=== PATIENT | male | born 1975 | race Caucasian/White ===

== ENCOUNTER 2020-03-25 12:54 | Emergency (ER) | payer OTHER ==
[2020-03-25 13:02] VITALS: BP 182/107; PULSE 99; RESP 18; TEMP 98
--- NOTE | 2020-03-25 13:04 | ED ---
Back Pain HPI - General Chief Complaint: Back Pain/Injury Stated Complaint: fall,neck,knee,and back pain Time Seen by Provider: 03/25/20 13:04 Source: patient Limitations: no limitations - History of Present Illness Initial Comments: Patient is a 44-year-old male presenting to the emergency department with a chief complaint of a fall. Patient states he was walking from a carpeted floor to a wet tile floor when he slipped and fell on his back. Patient denies any head injury but does report neck stiffness and spasm in. Patient states she does have history of previous neck surgery and has hardware in place. He denies any numbness or tingling. He also reports bilateral, paraspinal lumbar tenderness which is where most of the impact took place after the fall. He denies any saddle anesthesia, urinary retention with overflow incontinence or bowel incontinence. He also reports some right knee pain especially with emulating, flexion not extension. He denies taking medication to alleviate the symptoms. States this occurred one hour prior to arrival. - Related Data Home Medications Medication Instructions Recorded Confirmed cloNIDine HCL [Catapres] 0.1 - 0.3 mg PO Q4H PRN 08/19/15 03/25/20 Acetaminophen [Tylenol 8 Hour] 650 mg PO Q4H PRN MDD 6 TABS 03/25/20 03/25/20 Albuterol Inhaler [Ventolin Hfa 2 puff INHALATION RT-Q4H PRN 03/25/20 03/25/20 Inhaler] Calcium 1000mg/Magnesium 500mg 1 tab PO TID PRN 03/25/20 03/25/20 Chlorpheniramine Maleate 4 mg PO Q4HR PRN MDD 4 DOSES 03/25/20 03/25/20 [Chlor-Trimeton] Hyoscyamine Sulfate [Levsin-Sl] 0.125 mg SUBLINGUAL QID PRN 03/25/20 03/25/20 Ibuprofen [Motrin] 600 mg PO Q6HR PRN 03/25/20 03/25/20 Loperamide [Imodium] 4 mg PO BID PRN 03/25/20 03/25/20 Mirtazapine [Remeron] 30 mg PO HS@2200 03/25/20 03/25/20 Multivitamins, Thera [Multivitamin 1 tab PO DAILY@1200 03/25/20 03/25/20 (formulary)] Mylanta 30 ml PO Q4H PRN 03/25/20 03/25/20 Ondansetron HCl [Zofran] 8 mg PO Q6H PRN 03/25/20 03/25/20 Thiamine [Vitamin B-1] 100 mg PO DAILY@1200 03/25/20 03/25/20 Tigan 200mg 200 mg IM Q6H PRN 03/25/20 03/25/20 Trimethobenzamide HCl [Tigan] 300 mg PO Q6H PRN 03/25/20 03/25/20 Zofran 2mg/Ml 4 mg IM Q6H PRN 03/25/20 03/25/20 buprenorphine HCL [Subutex] 1 dose SUBLINGUAL DIRECTED 03/25/20 03/25/20 busPIRone HCl [Buspar] 10 mg PO DIRECTED 03/25/20 03/25/20 risperiDONE 4 mg PO HS@2200 03/25/20 03/25/20 Previous Rx's Medication Instructions Recorded Cyclobenzaprine [Flexeril] 10 mg PO TID PRN #15 tab 03/25/20 Ibuprofen [Motrin] 800 mg PO Q6HR #30 tab 03/25/20 Allergies Allergy/AdvReac Type Severity Reaction Status Date / Time No Known Allergies Allergy Verified 03/25/20 13:34 Review of Systems ROS Statement: Those systems with pertinent positive or pertinent negative responses have been documented in the HPI. ROS Other: All systems not noted in ROS Statement are negative. Past Medical History Past Medical History: CVA/TIA, Seizure Disorder Additional Past Medical History / Comment(s): chronic back pain History of Any Multi-Drug Resistant Organisms: None Reported Additional Past Surgical History / Comment(s): cervical spine fusion rods and plates Past Psychological History: ADD/ADHD, Anxiety, Bipolar, Depression, PTSD Smoking Status: Current every day smoker Past Alcohol Use History: None Reported, Abuse, Daily, Heavy Past Drug Use History: Marijuana General Exam Limitations: no limitations General appearance: alert, in no apparent distress Head exam: Present: atraumatic, normocephalic, normal inspection Eye exam: Present: normal appearance, PERRL, EOMI Pupils: Present: normal accommodation ENT exam: Present: normal exam, normal oropharynx, mucous membranes moist, TM's normal bilaterally, normal external ear exam Neck exam: Present: normal inspection, tenderness (Mild, mid vertebral, upper cervical tenderness. Also some tenderness to palpation in bilateral trapezii.), full ROM Respiratory exam: Present: normal lung sounds bilaterally. Absent: respiratory distress, wheezes, rales Cardiovascular Exam: Present: regular rate, normal rhythm, normal heart sounds GI/Abdominal exam: Present: soft. Absent: distended, tenderness, guarding, rebound Extremities exam: Present: normal inspection, tenderness (Tetanus along the infrapatellar region of the right knee.), normal capillary refill, other (+2 ulnar and radial pulses bilateral. +2 dorsalis pedis and posterior tibialis bilateral.). Absent: full ROM (Limited range of motion the right knee due to pain.), pedal edema, joint swelling, calf tenderness Back exam: Present: normal inspection, full ROM, tenderness, paraspinal tenderness (Bilateral paraspinal tenderness in the lumbosacral region.). Absent: CVA tenderness (R), CVA tenderness (L) Neurological exam: Present: alert, oriented X3 Psychiatric exam: Present: normal affect, normal mood Skin exam: Present: warm, dry, intact, normal color Course Vital Signs 03/25/20 12:58 Temperature 98 F Pulse Rate 99 Respiratory 18 Rate Blood Pressure 182/107 O2 Sat by Pulse 97 Oximetry Medical Decision Making - Medical Decision Making Patient is a 44-year-old male presenting to emergency Department with a chief complaint of a fall. On physical examination, patient does have tenderness over the right infrapatellar region. There is also some mid cervical tenderness of the neck and the trapezii. He also has paraspinal tenderness in the lumbosacral region. X-rays of the lumbar region and knee are negative for acute fracture or dislocations. Patient was offered CT of the brain and cervical spine, he declined. He knows there could be a potential for intracranial hemorrhage, dislocation, fracture. Neurological examination intact. Patient was given analgesia in the ED. Patient requested ibuprofen and Flexeril. Patient is a [facility] patient. Strict return parameters were thoroughly discussed the patient is an attending ago. Case discussed with physician. Disposition Clinical Impression: Fall, Knee pain, Low back pain Disposition: HOME SELF-CARE Condition: Stable Instructions (If sedation given, give patient instructions): Acute Low Back Pain (ED) Additional Instructions: Alternate between Tylenol and Motrin for pain. Return to emergency department if symptoms worsen. Prescriptions: Cyclobenzaprine [Flexeril] 10 mg PO TID PRN #15 tab PRN Reason: Muscle Spasm Ibuprofen [Motrin] 800 mg PO Q6HR #30 tab Is patient prescribed a controlled substance at d/c from ED?: No Referrals: Amandeep Avalos MD [Primary Care Provider] - 1-2 days Time of Disposition: 14:19
[2020-03-25] MEDS ORDERED: KETOROLAC 15 MG/ML 1 ML VIAL IM STA (13:16)
--- NOTE | 2020-03-25 13:43 | XR ---
EXAMINATION TYPE: XR knee complete RT DATE OF EXAM: 03/25/2020 CLINICAL HISTORY: pain TECHNIQUE: Three views of the right knee are obtained. COMPARISON: None. FINDINGS: There is no acute fracture/dislocation. The tri-compartment joint spaces appear within no rmal limits. The overlying soft tissue appears unremarkable. IMPRESSION: There is no acute fracture or dislocation.ICD 10 NO FRACTURE, INITIAL EVALUATION
--- NOTE | 2020-03-25 13:51 | XR ---
EXAMINATION TYPE: XR lumbar spine 2 or 3V DATE OF EXAM: 03/25/2020 CLINICAL HISTORY: pain TECHNIQUE: Three views of the lumbar spine are submitted. COMPARISON: None. FINDINGS: There are 5 lumbar type vertebral bodies identified. The lumbar spine shows satisfactory alignment w ithout evidence of acute fracture or dislocation. Vertebral body heights are within normal limits. Mild scattered degenerative disc space narrowing and spondylosis. The overlying soft tissue appears unremarkable. IMPRESSION: No acute fracture or dislocation is seen in the lumbar spine. ICD 10 NO FRACTURE, INITIAL EVALUATION
== END 2020-03-25 14:40 | disposition home or self-care (01) ==
LOC: EC 12:54
DX: M54.5 Low back pain (principal); M25.561 Pain in right knee; M54.2 Cervicalgia; F17.200 Nicotine dependence, unspecified, uncomplicated; F41.9 Anxiety disorder, unspecified; F31.9 Bipolar disorder, unspecified; F43.10 Post-traumatic stress disorder, unspecified; F90.9 Attention-deficit hyperactivity disorder, unspecified type; G40.909 Epilepsy, unspecified, not intractable, without status epilepticus; Z79.899 Other long term (current) drug therapy; Z86.73 Personal history of transient ischemic attack (TIA), and cerebral infarction without residual deficits; Z98.1 Arthrodesis status; W01.0XXA Fall on same level from slipping, tripping and stumbling without subsequent striking against object, initial encounter; Y93.01 Activity, walking, marching and hiking; Y92.009 Unspecified place in unspecified non-institutional (private) residence as the place of occurrence of the external cause
CPT/HCPCS: 72100; 73562; 99283; 96372; J1885

== ENCOUNTER 2020-09-30 11:06 | Emergency (ER) | payer OTHER ==
[2020-09-30 11:17] VITALS: RESP 18
[2020-09-30 12:50] LABS: ALT 14 U/L (4-49); AST 28 U/L (17-59); African American GFR (CKD) >90 (>60 ml/min/1.73 sqM); Albumin 3.8 g/dL (3.5-5.0); Alkaline Phosphatase 55 U/L (38-126); Anion Gap 3 mmol/L; Blood Urea Nitrogen 11 mg/dL (9-20); Calcium 9.2 mg/dL (8.4-10.2); Carbon Dioxide 30 mmol/L (22-30); Chloride 101 mmol/L (98-107); Glucose 108 mg/dL (74-99); Lipase 55 U/L (23-300); Non-African American GFR(CKD) >90 (>60 ml/min/1.73 sqM); Potassium 3.9 mmol/L (3.5-5.1); Sodium 134 mmol/L (137-145); Total Bilirubin 1.1 mg/dL (0.2-1.3)
[2020-09-30 13:00] LABS: Partial Thromboplastin Time 23.9 sec (22.0-30.0); Prothrombin Time 10.7 sec (9.0-12.0)
[2020-09-30 13:20] LABS: Basophils % (A) 0 %; Eosinophils # (A) 0.1 k/uL (0-0.7); Eosinophils % (A) 0 %; HCT 45.9 % (39.0-53.0); HGB 15.3 gm/dL (13.0-17.5); Lymphocytes # (A) 1.9 k/uL (1.0-4.8); Lymphocytes % (A) 17 %; MCH 29.1 pg (25.0-35.0); MCHC 33.3 g/dL (31.0-37.0); MCV 87.5 fL (80.0-100.0); Mean Platelet Volume 7.3; Monocytes # (A) 0.6 k/uL (0-1.0); Monocytes % (A) 6 %; Neutrophils # (A) 8.4 k/uL (1.3-7.7); Neutrophils % (A) 76 %; Platelet Count 196 k/uL (150-450); RBC 5.25 m/uL (4.30-5.90); RDW 14.6 % (11.5-15.5); WBC 11.1 k/uL (3.8-10.6)
--- NOTE | 2020-09-30 13:45 | CT ---
EXAMINATION TYPE: CT abdomen pelvis w con DATE OF EXAM: 09/30/2020 COMPARISON: HISTORY: generalized abdominal pain hernia repair CT DLP: 630.9 mGycm Automated exposure control for dose reduction was used. CONTRAST: CT scan of the abdomen pelvis is performed with IV Contrast, patient injected with 100 mL of Isovue 3 00. FINDINGS- LUNG BASES- No significant abnormality is appreciated. LIVER/GB- No gross abnormality is appreciated. PANCREAS- No gross abnormality is seen. SPLEEN- No gross abnormality is seen. ADRENALS-8 mm left adrenal nodule.. KIDNEYS/BLADDER- no hydronephrosis nephrolithiasis or renal mass. BOWEL-bowel gas pattern nonspecific. LYMPH NODES- No greater than 1cm abdominal or pelvic lymph nodes areappreciated. OSSEOUS STRUCTURES-hypertrophic changes of the spine.. OTHER- there is a large amount of free intraperitoneal air is seen scattered throughout the abdomen and pelvis. There appears to be extensive subcutaneous emphysema with extension through the anterior abdominal wall into the scrotal sac. There is thickening to the right rectus which is slightly asymme tric relative to the left measuring a thickness of 2.1 cm versus 1.5 cm correlate for rectus sheath h ematoma. Small amount of edema or fluid in the anterior subcutaneous tissues within the anterior abdo wei wall bilaterally. Bladder wall thickened. Roach catheter is noted in the bladder. IMPRESSION- 1. Large amount of free intraperitoneal air within the abdomen. Ruptured viscus or perforated bowel i n the differential diagnosis. 2. There is a sizable amount of subcutaneous air anteriorly extends from the anterior abdominal wall into the scrotal sac. An upper thigh region bilaterally 3. Bladder wall is thickened with Roach catheter correlate for urinalysis for bladder infection. 4. Asymmetric thickening to the right rectus sheath suspicious for rectus sheath hematoma correlate c linically. Case discussed with emergency room clinician 09/30/2000 at 1342
--- NOTE | 2020-09-30 14:10 | ED ---
Male Urogenital HPI - General Chief complaint: Urogenital Stated complaint: PostOp problem w Hernia & urination Source: patient Mode of arrival: wheelchair Limitations: no limitations - History of Present Illness Initial comments: Patient is a 45-year-old male with past medical history of daily alcohol use, CVA, seizure disorder who presents to the emergency department with reported surgical site pain and inability to urinate. Patient had surgery at [facility] yesterday by Dr. Duron. He had laparoscopic procedure with repair of a left inguinal hernia. States he was discharged home on Motrin. He has been unable to have a bowel movement or urinate since the procedure. He called his surgeon who told him to go and local ER. He denies any fevers. Inab ility to pass gas. Denies chest pain or shortness of breath. No nausea or vomiting. Reports to increasing pain at the surgical site with some blood tinged drainage. Denies pustular drainage. No other alleviating, precipitating or modifying factors - Related Data Home Medications Medication Instructions Recorded Confirmed Buprenorphine HCl/Naloxone HCl 1 film SL BID 09/30/20 09/30/20 [Suboxone 8 mg-2 mg Sl Film] Allergies Allergy/AdvReac Type Severity Reaction Status Date / Time No Known Allergies Allergy Verified 09/30/20 12:43 Review of Systems ROS Statement: Those systems with pertinent positive or pertinent negative responses have been documented in the HPI. ROS Other: All systems not noted in ROS Statement are negative. Past Medical History Past Medical History: CVA/TIA, Seizure Disorder Additional Past Medical History / Comment(s): chronic back pain History of Any Multi-Drug Resistant Organisms: None Reported Additional Past Surgical History / Comment(s): cervical spine fusion rods and plates Past Psychological History: ADD/ADHD, Anxiety, Bipolar, Depression, PTSD Smoking Status: Current every day smoker Past Alcohol Use History: Abuse, Daily, Heavy Past Drug Use History: Marijuana General Exam Limitations: no limitations General appearance: alert, in no apparent distress Head exam: Present: atraumatic, normocephalic, normal inspection Eye exam: Present: normal appearance, PERRL, EOMI. Absent: scleral icterus, conjunctival injection, periorbital swelling ENT exam: Present: normal exam, mucous membranes moist Neck exam: Present: normal inspection. Absent: tenderness, meningismus, lymphadenopathy Respiratory exam: Present: normal lung sounds bilaterally. Absent: respiratory distress, wheezes, rales, rhonchi, stridor Cardiovascular Exam: Present: regular rate, normal rhythm, normal heart sounds. Absent: systolic murmur, diastolic murmur, rubs, gallop, clicks GI/Abdominal exam: Present: soft, tenderness (at surgical incision site - site noted periumbilical and RLQ. clean/dry/intact. Mild bloody drainage from RLQ), normal bowel sounds. Absent: distended, guarding, rebound, rigid Extremities exam: Present: normal inspection, full ROM, normal capillary refill. Absent: tenderness, pedal edema, joint swelling, calf tenderness Back exam: Present: normal inspection Neurological exam: Present: alert, oriented X3, CN II-XII intact Psychiatric exam: Present: normal affect, normal mood Skin exam: Present: warm, dry, intact, normal color. Absent: rash Course Vital Signs 09/30/20 09/30/20 11:14 15:22 Temperature 97.2 F L Pulse Rate 87 98 Respiratory 18 18 Rate Blood Pressure 151/103 178/88 O2 Sat by Pulse 98 97 Oximetry - Reevaluation(s) Reevaluation #1: 09/30/20 14:10 Spoke with radiology Medical Decision Making - Medical Decision Making Upon arrival patient is placed in room 33. A thorough history and physical exam was performed. Patient does have significant tenderness over his surgical site. IV is established patient was given 1 g of Dilaudid for pain control. Laboratory studies are conducted and reviewed. Patient is bladder scanner does have greater than 500 and his bladder. We did place a Roach. Urine is sent which demonstrates no signs of infection. CT is performed because of the patient's reported pain and discharge from his surgical site. Demonstrates a large amount of free intraperitoneal air within the abdomen. Ruptured viscus or perforated bowel in the differential. Sizable amount of subcutaneous air anteriorly extensors and the anterior abdominal wall into the scrotal sac. Lateral wall thickening. Asymmetric thickening to the right rectus sheath. I did speak with Dr. Thomas in regards to this read. I informed him that the patient had laparoscopic surgery yesterday. He does feel that this is a significant amount of intraperitoneal air, more so than what we see with laparoscopic surgery. He is concerned for perforated viscus. Because of this I did speak with Dr. Rahman. He states that if the patient is stable for transfer that he be transferred to [facility] where his procedure was performed. Patient is hemodynamically stable. He is given a second dose of Dilaudid for pain control. Blood cultures obtained and the patient is initiated on antibiotics. I did speak with Dr. Violetta Beatty who agreed to accept the patient. Patient was then transferred by EMS in stable condition - Lab Data Result diagrams: 09/30/20 12:20 09/30/20 12:20 Lab Results 09/30/20 09/30/20 09/30/20 Range/Units 12:20 12:20 12:20 WBC 11.1 H (3.8-10.6) k/uL RBC 5.25 (4.30-5.90) m/uL Hgb 15.3 (13.0-17.5) gm/dL Hct 45.9 (39.0-53.0) % MCV 87.5 (80.0-100.0) fL MCH 29.1 (25.0-35.0) pg MCHC 33.3 (31.0-37.0) g/dL RDW 14.6 (11.5-15.5) % Plt Count 196 (150-450) k/uL MPV 7.3 Neutrophils % 76 % Lymphocytes % 17 % Monocytes % 6 % Eosinophils % 0 % Basophils % 0 % Neutrophils # 8.4 H (1.3-7.7) k/uL Lymphocytes # 1.9 (1.0-4.8) k/uL Monocytes # 0.6 (0-1.0) k/uL Eosinophils # 0.1 (0-0.7) k/uL Basophils # 0.0 (0-0.2) k/uL PT 10.7 (9.0-12.0) sec INR 1.0 (<1.2) APTT 23.9 (22.0-30.0) sec Sodium 134 L (137-145) mmol/L Potassium 3.9 (3.5-5.1) mmol/L Chloride 101 (98-107) mmol/L Carbon Dioxide 30 (22-30) mmol/L Anion Gap 3 mmol/L BUN 11 (9-20) mg/dL Creatinine 0.70 (0.66-1.25) mg/dL Est GFR (CKD-EPI)AfAm >90 (>60 ml/min/1.73 sqM) Est GFR (CKD-EPI)NonAf >90 (>60 ml/min/1.73 sqM) Glucose 108 H (74-99) mg/dL Plasma Lactic Acid Yovany (0.7-2.0) mmol/L Calcium 9.2 (8.4-10.2) mg/dL Total Bilirubin 1.1 (0.2-1.3) mg/dL AST 28 (17-59) U/L ALT 14 (4-49) U/L Alkaline Phosphatase 55 (38-126) U/L Total Protein 6.0 L (6.3-8.2) g/dL Albumin 3.8 (3.5-5.0) g/dL Lipase 55 (23-300) U/L Urine Color Urine Appearance (Clear) Urine pH (5.0-8.0) Ur Specific [place] (1.001-1.035) Urine Protein (Negative) Urine Glucose (UA) (Negative) Urine Ketones (Negative) Urine Blood (Negative) Urine Nitrite (Negative) Urine Bilirubin (Negative) Urine Urobilinogen (<2.0) mg/dL Ur Leukocyte Esterase (Negative) 09/30/20 09/30/20 Range/Units 12:20 14:22 WBC (3.8-10.6) k/uL RBC (4.30-5.90) m/uL Hgb (13.0-17.5) gm/dL Hct (39.0-53.0) % MCV (80.0-100.0) fL MCH (25.0-35.0) pg MCHC (31.0-37.0) g/dL RDW (11.5-15.5) % Plt Count (150-450) k/uL MPV Neutrophils % % Lymphocytes % % Monocytes % % Eosinophils % % Basophils % % Neutrophils # (1.3-7.7) k/uL Lymphocytes # (1.0-4.8) k/uL Monocytes # (0-1.0) k/uL Eosinophils # (0-0.7) k/uL Basophils # (0-0.2) k/uL PT (9.0-12.0) sec INR (<1.2) APTT (22.0-30.0) sec Sodium (137-145) mmol/L Potassium (3.5-5.1) mmol/L Chloride (98-107) mmol/L Carbon Dioxide (22-30) mmol/L Anion Gap mmol/L BUN (9-20) mg/dL Creatinine (0.66-1.25) mg/dL Est GFR (CKD-EPI)AfAm (>60 ml/min/1.73 sqM) Est GFR (CKD-EPI)NonAf (>60 ml/min/1.73 sqM) Glucose (74-99) mg/dL Plasma Lactic Acid Yovany 0.9 (0.7-2.0) mmol/L Calcium (8.4-10.2) mg/dL Total Bilirubin (0.2-1.3) mg/dL AST (17-59) U/L ALT (4-49) U/L Alkaline Phosphatase (38-126) U/L Total Protein (6.3-8.2) g/dL Albumin (3.5-5.0) g/dL Lipase (23-300) U/L Urine Color Yellow Urine Appearance Clear (Clear) Urine pH 7.5 (5.0-8.0) Ur Specific [place] 1.019 (1.001-1.035) Urine Protein Negative (Negative) Urine Glucose (UA) Negative (Negative) Urine Ketones Negative (Negative) Urine Blood Negative (Negative) Urine Nitrite Negative (Negative) Urine Bilirubin Negative (Negative) Urine Urobilinogen <2.0 (<2.0) mg/dL Ur Leukocyte Esterase Negative (Negative) Disposition Clinical Impression: Abdominal pain, Free intraperitoneal air, History of hernia repair, Urinary retention Disposition: OTHER INSTITUTION NOT DEFINED Condition: Serious Is patient prescribed a controlled substance at d/c from ED?: No Referrals: Bandar Duron DO [Primary Care Provider] - 1-2 days - Out of Hospital Transfer - Req. Specs Out of Hospital Transfer - Requested Specifics: Other Emergency Center ([facility]
[2020-09-30] MEDS ORDERED: HYDROmorphone 1 MG/ML 1 ML SYRINGE IVP STA ×2 (14:28→15:22)
[2020-09-30 14:40] LABS: Appearance,Urine Clear (Clear); Bilirubin,Urine Negative (Negative); Blood,Urine Negative (Negative); Color,Urine Yellow; Glucose,Urine (UA) Negative (Negative); Ketones,Urine Negative (Negative); Leukocyte Esterase,Urine Negative (Negative); Nitrite,Urine Negative (Negative); PH, Urine 7.5 (5.0-8.0); Protein,Urine Negative (Negative); Specific Gravity,Urine 1.019 (1.001-1.035); Urobilinogen,Urine <2.0 mg/dL (<2.0)
[2020-09-30] MEDS ORDERED: PIPERACILLIN-TAZOBACTAM 3.375 GM in SODIUM CHLORIDE 0.9% 100 ML IVPB STA (15:23)
[2020-09-30 16:36] VITALS: BP 169/88; PULSE 88; TEMP 98.4
== END 2020-09-30 16:35 | disposition other institution (70) ==
LOC: EC 11:06
DX: R33.9 Retention of urine, unspecified (principal); Z98.890 Other specified postprocedural states; Z86.73 Personal history of transient ischemic attack (TIA), and cerebral infarction without residual deficits; F41.9 Anxiety disorder, unspecified; F32.9 Major depressive disorder, single episode, unspecified; F17.200 Nicotine dependence, unspecified, uncomplicated; F12.90 Cannabis use, unspecified, uncomplicated
CPT/HCPCS: 36415; 51798; 74177; 80053; 81003; 83605; 83690; 85025; 85610; 85730; 96365; 96375; 96376; 99283

== ENCOUNTER 2020-10-02 14:54 | Emergency (ER) | payer OTHER ==
[2020-10-02 15:08] VITALS: BP 187/84; RESP 18
[2020-10-02] MEDS ORDERED: HYDROmorphone 0.5 MG/0.5 ML SYRINGE IM STA (16:03)
--- NOTE | 2020-10-02 16:43 | ED ---
Back Pain HPI - General Source: patient, EMS Limitations: no limitations <Gabrielle Garcia - Last Filed: 10/02/20 16:49> <Maribel Montez - Last Filed: 10/04/20 15:00> - General Chief Complaint: Back Pain/Injury Stated Complaint: low back pain Time Seen by Provider: 10/02/20 15:16 - History of Present Illness Initial Comments: Patient is a 45-year-old male presenting to the emergency department via EMS with complaints of low back pain. Patient is 3 days postop left inguinal hernia repair at [facility]. Patient was here 2 days ago complaining of abdominal pain, he was transferred back to [facility] for abdominal free air and was discharged from there yesterday. Patient states he bent over today and had increasing low back pain, he states he thought he had to go to the bathroom but did not make it ended up losing his bowel control. He says still has a catheter from his surgery as well. He states he was prescribed antibiotics and has yet to pick them up. He is complaining of numbness and tingling to his bilateral legs, increasing pain. He denies any fever or chills, no falls or trauma. He does admit to a cervical spine surgery in the past. He has no further complaints. Upon arrival to the ER his vitals are stable. (Gabrielle Garcia) - Related Data Home Medications Medication Instructions Recorded Confirmed Buprenorphine HCl/Naloxone HCl 1 film SL BID 09/30/20 09/30/20 [Suboxone 8 mg-2 mg Sl Film] Allergies Allergy/AdvReac Type Severity Reaction Status Date / Time No Known Allergies Allergy Verified 10/02/20 15:08 Review of Systems ROS Other: All systems not noted in ROS Statement are negative. <Gabrielle Garcia - Last Filed: 10/02/20 16:49> ROS Other: All systems not noted in ROS Statement are negative. <Maribel Montez - Last Filed: 10/04/20 15:00> ROS Statement: Those systems with pertinent positive or pertinent negative responses have been documented in the HPI. Past Medical History Past Medical History: CVA/TIA, Seizure Disorder Additional Past Medical History / Comment(s): chronic back pain History of Any Multi-Drug Resistant Organisms: None Reported Past Surgical History: Hernia Repair Additional Past Surgical History / Comment(s): cervical spine fusion rods and plates Past Psychological History: ADD/ADHD, Anxiety, Bipolar, Depression, PTSD Smoking Status: Current every day smoker Past Alcohol Use History: Daily Past Drug Use History: Marijuana <Gabrielle Garcia - Last Filed: 10/02/20 16:49> General Exam Limitations: no limitations Rectal exam: Present: decreased rectal tone <Gabrielle Garcia - Last Filed: 10/02/20 16:49> - General Exam Comments Initial Comments: GENERAL: Patient is well-developed and well-nourished. Patient is nontoxic and in mild distress. HEAD: Atraumatic, normocephalic. EYES: Pupils equal round and reactive to light, extraocular movements intact, sclera anicteric, conjunctiva are normal. Eyelids were unremarkable. ENT: TMs normal, nares patent, oropharynx clear without exudates. Moist mucous membranes. NECK: Normal range of motion, supple without lymphadenopathy or JVD. LUNGS: Unlabored respirations. Breath sounds clear to auscultation bilaterally and equal. No wheezes rales or rhonchi. HEART: Regular rate and rhythm without murmurs, rubs or gallops. ABDOMEN: Soft, nontender, except around recent surgical incisions which look clean, dry, and intact., normoactive bowel sounds. No guarding, no rebound. No masses appreciated. : Catheter in place MUSCULOSKELETAL: Patient is stating decreased sensation of the upper legs bilaterally. He does have full range of motion lower extremities bilaterally, with adequate strength and normal range of motion, no pitting or edema. No clubbing or cyanosis. NEUROLOGICAL: Patient is alert and oriented x 3. Cranial nerves II through XII grossly intact. Symmetrical smile. Normal speech, patient unable to ambulate without assistance. PSYCH: Normal mood, normal affect. SKIN: Warm, Dry, normal turgor, no rashes or lesions noted. (Gabrielle Garcia) Course Vital Signs 10/02/20 10/02/20 15:05 17:14 Temperature 99.1 F 98.4 F Pulse Rate 104 H 106 H Respiratory 18 18 Rate Blood Pressure 187/84 O2 Sat by Pulse 97 97 Oximetry Medical Decision Making <Gabrielle Garcia - Last Filed: 10/02/20 16:49> <Maribel Montez - Last Filed: 10/04/20 15:00> - Medical Decision Making Patient is a 45-year-old male here via EMS with complaints of increasing low back pain and loss of bowel control. His vitals are stable. Patient received 0.5 mg of Dilaudid here in the ER. Rectal exam shows decreased rectal tone, decreased sensation in his upper legs. Given patient's complaints and findings here on exam, recommended transfer to [facility] or he had his recent inguinal surgery however patient refuses to go back there. Patient will be transferred to [facility] for neurosurgery consult, possible stat MRI, accepting is Dr. Estrella. Patient is in agreement with this plan. Case discussed with Dr. Montez. (Gabrielle Garcia) I was available for consultation in the emergency department. The history and physical exam were done by the midlevel provider. I was consulted for this patients care. I reviewed the case with the midlevel provider and based on their presentation of the patient, I agree with the assessment, medical decision making and plan of care as documented. Chart was dictated using [employer] dictation software. Attempts were made to correct any dictation errors however some typographical errors may persist. Patient was seen during a national state of emergency due to the Covid-19 pandemic. (Maribel Montez) Disposition - Out of Hospital Transfer - Req. Specs Out of Hospital Transfer - Requested Specifics: Other Emergency Center ([facility]) <Gabrielle Garcia - Last Filed: 10/02/20 16:49> <Maribel Montez - Last Filed: 10/04/20 15:00> Clinical Impression: Low back pain Disposition: OTHER INSTITUTION NOT DEFINED Condition: Stable Referrals: None,Stated [Primary Care Provider] - 1-2 days
[2020-10-02] MEDS ORDERED: HYDROcodone/APAP 7.5-325MG 1 EACH TAB PO ONE (17:14)
[2020-10-02 17:15] VITALS: PULSE 106; TEMP 98.4
== END 2020-10-02 17:50 | disposition other institution (70) ==
LOC: EC 14:54
DX: M54.5 Low back pain (principal); F32.9 Major depressive disorder, single episode, unspecified; F17.200 Nicotine dependence, unspecified, uncomplicated; F12.90 Cannabis use, unspecified, uncomplicated; Z86.73 Personal history of transient ischemic attack (TIA), and cerebral infarction without residual deficits
CPT/HCPCS: 99283; 96372; J1170

== ENCOUNTER → 2020-12-20 | Outpatient (CLI) | payer OTHER ==
--- NOTE | 2020-12-21 09:14 | MR ---
EXAMINATION TYPE: MR cervical spine wo/w con DATE OF EXAM: 12/20/2020 COMPARISON: None HISTORY: Neck pain down both arms to fingers for years. Pain throughout whole back, prior cervical mondragon rgery. CONTRAST: Performed utilizing 6.5 mL intravenous Gadavist gadolinium contrast. TECHNIQUE: Multiplanar multiecho imaging on a 3.0 Delilah magnet is performed through the cervical spin e. FINDINGS: The craniovertebral junction is normal. Vertebral body alignment is normal. There is ant erior fusion of C4-5 causing some susceptibility artifact through the vertebral bodies. C7-T1: No focal disc herniation or significant disc bulge is evident. No spinal canal stenosis or n eural foraminal stenosis is present. C6-7: There is loss of disc height is level. Anterior vertebral body spurring is present. There is di sc bulging into the left paracentral region with [id number] anterior thecal sac compression. No cord contact is evident. Uncovertebral joint hypertrophy is contributing to moderate bilateral paul inal stenosis.. C5-6: Endplate changes and mild anterior thecal sac flattening. No AP spinal canal stenosis is presen t. Mild bilateral foraminal narrowing is present. C4-5: There is loss of disc height is level. No spinal canal stenosis or neural foraminal stenosis pr esent. No focal disc herniation is evident.. C3-4: There is a large broad-based disc herniation with moderate anterior thecal sac impression. This is cord contact. Some cord flattening is evident. This extends in the right paracentral region. Eric elate for right radicular symptoms at this level. Some right foraminal stenosis is present.. C2-3: Broad-based disc bulge has mild anterior thecal sac flattening. No AP spinal canal stenosis pre sent. Neural foramen are patent. No suspicious enhancement is evident. IMPRESSIONS: 1. Large broad-based disc herniation at C3-4 has moderate anterior thecal sac compression and cord fl attening with cord contact. AP spinal canal stenosis is not present. 2. Disc bulge at C2-C3 and C5-6. No cord contact is evident. 3. Uncovertebral joint hypertrophy contributing to [id number] foraminal narrowing discussed abo ve. This appears greatest bilaterally at C6-7 with moderate narrowing.
== END | disposition home or self-care (01) ==
LOC: RADMRIMAIN 16:25
PROVIDERS: ATTEND Orthopaedic Surgery Orthopaedic Surgery of the Spine
DX: M50.222 Other cervical disc displacement at C5-C6 level (principal); M99.71 Connective tissue and disc stenosis of intervertebral foramina of cervical region
CPT/HCPCS: 72156; A9585

== ENCOUNTER → 2021-01-08 | Outpatient (CLI) | payer OTHER ==
[2021-01-08 09:21] LABS: Appearance,Urine Clear (Clear); Bilirubin,Urine Negative (Negative); Blood,Urine Negative (Negative); Color,Urine Light Yellow; Glucose,Urine (UA) Negative (Negative); Ketones,Urine Negative (Negative); Leukocyte Esterase,Urine Negative (Negative); Nitrite,Urine Negative (Negative); Protein,Urine Negative (Negative); Specific Gravity,Urine 1.002 (1.001-1.035); Urobilinogen,Urine <2.0 mg/dL (<2.0)
[2021-01-08 09:32] LABS: ALT 13 U/L (4-49); AST 26 U/L (17-59); African American GFR (CKD) >90 (>60 ml/min/1.73 sqM); Albumin 4.5 g/dL (3.5-5.0); Alkaline Phosphatase 112 U/L (38-126); Anion Gap 7 mmol/L; Blood Urea Nitrogen 16 mg/dL (9-20); Calcium 9.4 mg/dL (8.4-10.2); Carbon Dioxide 31 mmol/L (22-30); Chloride 99 mmol/L (98-107); Glucose 110 mg/dL (74-99); Non-African American GFR(CKD) >90 (>60 ml/min/1.73 sqM); Potassium 3.9 mmol/L (3.5-5.1); Sodium 137 mmol/L (137-145); Total Bilirubin 0.3 mg/dL (0.2-1.3); Total Protein 6.6 g/dL (6.3-8.2)
[2021-01-08 09:34] LABS: INR 0.9 (<1.2); Prothrombin Time 9.9 sec (9.0-12.0)
--- NOTE | 2021-01-08 15:48 | XR ---
EXAMINATION TYPE: XR chest 2V DATE OF EXAM: 01/08/2021 COMPARISON: 08/19/2015 HISTORY: 45-year-old male preoperative evaluation before spinal surgery TECHNIQUE: Frontal and lateral views FINDINGS: The cardiomediastinal silhouette, aorta, and pulmonary vasculature are within normal limits. Lungs an d pleural spaces are clear. ACDF hardware partially seen. IMPRESSION: No acute cardiopulmonary process.
== END | disposition home or self-care (01) ==
LOC: LABPAT 08:07
PROVIDERS: ATTEND Orthopaedic Surgery Orthopaedic Surgery of the Spine
DX: Z01.818 Encounter for other preprocedural examination (principal); M48.02 Spinal stenosis, cervical region
CPT/HCPCS: 71046; 80053; 81003; 85610; 85730; 87070

== ENCOUNTER 2021-01-12 10:40 | Observation (INO) | payer OTHER ==
[2021-01-11 09:49] VITALS: BMI 19.5
[~2021-01-12 10:40] MED LIST: DEXAMETHASONE SOD PHOSPHATE 4 MG/ML 1 ML VIAL IV ONE; LIDOCAINE 1% (10MG/ML) FOR IV START INTRADERMA PRN; ONDANSETRON 4 MG/2 ML VIAL IVP ONE; ceFAZolin 1,000 MG in SODIUM CHLORIDE 0.9% IRRIGATIO 1,000 ML IRRIGATION PRN
[2021-01-12] MEDS: LACTATED RINGERS 1,000 ML IV SCH ×2 (11:18→22:08)
[2021-01-12] MEDS ORDERED: fentaNYL (PF) 50 MCG/ML 2 ML AMP IVP ONE ×3 (11:40→14:35)
[2021-01-12] MEDS ORDERED: PROPOFOL 10 MG/ML 20 ML VIAL IV ONE (11:57)
[2021-01-12] MEDS ORDERED: PHENYLEPHRINE-0.9% NACL SYG 1,000 MCG/10 ML SYRINGE ONE (11:57)
[2021-01-12] MEDS ORDERED: LIDOCAINE 1% INJ 10MG/ML (20 ML MDV) ONE (11:57)
[2021-01-12] MEDS ORDERED: MIDAZOLAM 2 MG/2 ML VIAL ONE (11:57)
[2021-01-12] MEDS ORDERED: HYDROmorphone (PF) 1 MG/ML ONE (11:57)
[2021-01-12] MEDS ORDERED: SUCCINYLCHOLINE CHLORIDE 100 MG/5 ML SYR IV ONE (11:57)
[2021-01-12] MEDS ORDERED: fentaNYL (PF) 50 MCG/ML 2 ML AMP ONE (11:57)
[2021-01-12] MEDS ORDERED: ePHEDrine SULFATE/0.9% NACL/PF 50 MG/5 ML SYRINGE IV ONE (11:57)
[2021-01-12] MEDS ORDERED: LACTATED RINGERS 1,000 ML IV ONE ×4 (12:41→14:45)
[2021-01-12] MEDS ORDERED: THROMBIN (BOVINE) 5,000 UNIT VIAL TOPICAL ONE (12:56)
[2021-01-12] MEDS ORDERED: LIDOCAINE 2%-EPI 1:100,000 20 ML VIAL SQ ONE (12:56)
[2021-01-12] MEDS ORDERED: GELATIN SPONGE,ABSORB (LARGE) 1 EACH SPONGE MISCELLANE ONE (12:56)
[2021-01-12] MEDS ORDERED: BUPIVACAINE (PF) 0.25% 30 ML VIAL SQ ONE (12:57)
[2021-01-12] MEDS ORDERED: HYDROmorphone 1 MG/ML 1 ML SYRINGE IVP PRN (13:53)
[2021-01-12] MEDS ORDERED: ONDANSETRON 4 MG/2 ML VIAL IVP PRN (13:53)
[2021-01-12] MEDS ORDERED: bisacodyL 10 MG SUPP RECTAL PRN (13:53)
[2021-01-12] MEDS ORDERED: MAGNESIUM HYDROXIDE 2,400 MG/10 ML CUP PO PRN (13:53)
[2021-01-12] MEDS ORDERED: ACETAMINOPHEN TAB 325 MG TAB PO PRN (13:53)
[2021-01-12] MEDS ORDERED: BENZOCAINE/MENTHOL LOZENG 1 EACH LOZENGE MUCOUS MEM PRN (13:53)
[2021-01-12] MEDS ORDERED: CYCLOBENZAPRINE 10 MG TAB PO PRN (13:53)
[2021-01-12] MEDS ORDERED: HYDROcodone/APAP 7.5-325MG 1 EACH TAB PO PRN (13:53)
[2021-01-12] MEDS ORDERED: HYDROcodone/APAP 5-325MG 1 EACH TAB PO PRN (13:55)
--- NOTE | 2021-01-12 14:06 | P.OP ---
Date of Procedure: 01/12/21 Preoperative Diagnosis: Cervical myelopathy, severe cervical stenosis C3 4, disc herniation C3 4, history of prior fusion C4 5, upper extremity weakness, history of recent injury from falling off a roof Postoperative Diagnosis: Same with findings of stable plate at C4 5 Anesthesia: GETA Pathology: none sent Condition: stable Disposition: PACU Description of Procedure: BRIEF OPERATIVE NOTE Preoperative Diagnosis:Cervical myelopathy, severe cervical stenosis C3 4, disc herniation C3 4, history of prior fusion C4 5, upper extremity weakness, history of recent injury from falling off a roof Postoperative Diagnosis:Cervical myelopathy, severe cervical stenosis C3 4, disc herniation C3 4, history of prior fusion C4 5, upper extremity weakness, history of recent injury from falling off a roof Procedure: Anterior cervical decompression and fusion C3 4 Placement of interbody peek graft with incorporated anterior cervical plate C 3 4 Local autogenous bone grafting Surgeon: Dr. Thurman Control Systems Technician: Eddie Juarez is present throughout the entire the case persistence during positioning, dissection, exposure, visualization, and all crucial elements of the case as well as closure. Anesthesia: General anesthesia Estimated blood loss: Approximately 50 mL Complications: None apparent Components implanted: Stand-alone K2M interbody peek cage with incorporated anterior cervical plate with 12 mm screws at C3 and C4 with local autogenous bone graft and DBM bone matrix Disposition: To recovery room in good stable condition. OPERATIVE INDICATIONS The patient has significant in their neck and upper extremities which have worsened since he sustained an injury when he fell off a roof approximately 7 months ago. He had some history of cervical issues in the past and has undergone cervical decompression with discectomy and fusion at C 4 5 which he had done well with, but he is having worsening issues since his injury. He has been complaining of troubles with his ambulation his gait and his strength in his bilateral upper extremity is. He has been having some altered sensation in his bilateral hands as well we felt that he had some myelopathic symptoms and upon evaluation of the cervical spine is found have evidence of severe stenosis at C34 with stable fusion at C4 5. He had signs of early myelopathy and was not responding to any conservative treatment. The patient has been through conservative treatment. We discussed various treatment options including surgery, and the patient wishes to proceed with surgery. I discussed with him the fact that he has a number of different issues that he is dealing with including issues with his abdomin that may not reveal related to his cervical spine and he seemed to understand this. The patient has a history of chronic opioid use and has been on Suboxone for a number of years as well. We discussed the risk, patient's alternatives and benefits of surgery including but not limited to, risk of bleeding risk of infection, risk of need for further surgery, risk of decreased, loss of motion, muscle function, malunion nonunion, hardware failure, nerve damage, paralysis, heart attack, and . OPERATIVE SUMMARY After discussing all the risks, patient alternatives and benefits at length, the patient elected to proceed with surgical intervention, signed informed consent, and presented for their procedure. The patient was seen and examined in the preoperative holding area and the surgical site was marked. The patient was given antibiotics and brought to the operating room. The patient was positioned on the operating room table in a supine position being careful to pad any bony prominences and pressure points. The patient was sedated and intubated by anesthesia in standard fashion. Once the airway and C- spine were stabilized the patient's arms were padded and tucked at her side, with her shoulders gently taped. The head was placed in a donut pad with the neck in good neutral alignment and position. We were careful to maintain the patient's cervical spine and good neutral alignment and position throughout. The patient was prepped and draped in a normal standard fashion. An appropriate timeout and keystone protocol performed. We were able to proceed with the surgery. The local wound area was infiltrated with local anesthetic. An incision was made transversely approximately 2-1/2 cm over the appropriate levels at approximately C3 4 with attempts to avoid his numerous tattoos over his neck. Dissection was taken down subcutaneously to the level of the platysma which was split in line with its fibers. Dissection was taken with a carotid approach, with the trachea and esophagus medial and the carotid sheath laterally. We dissected down to the anterior surface of the vertebral bodies. As able to palpate and expose the plate C45 which appeared stable and intact without any evidence of loosening. Intraoperative x-ray was taken which showed a marker at the appropriate level of the disc at C3 4. With the appropriate level positively confirmed, we were able to proceed with discectomy at the appropriate levels. The C3 4 disc was exposed appropriately. The patient had all their twitches back, and there was no evidence of recurrent laryngeal issue. The wound was copiously irrigated and suctioned dry as had been done perio dically throughout the case. At the appropriate level/levels, I established an annulotomy with an 11 blade scalpel. A discectomy was performed with a combination of pituitary rongeurs, curettes, a high-speed bur, and Kerrison rongeurs. The posterior longitudinal ligament was taken down as were any posterior osteophytes. There was posterior disc herniation causing central and bilateral foraminal stenosis. I was able to remove this drain decompression and discectomy. This gave good central and bilateral foraminal decompression. There is no evidence of any dural tear or leak. The endplates were prepared with a high-speed bur. With the endplates in good parallel position, I was able to size for the appropriate size interbody graft. The wound was irrigated and suctioned dry. we chose a peek graft with incorporated anterior cervical plate. I placed local autogenous bone graft as well as DBX bone graft within 2 the center of the peek cage for preparation. the graft was prepared and malleted into position. It had good alignment and position with the anterior surface flush with the anterior surface of the vertebral bodies. With the grafts intact, I was able to care for screw hole placement using appropriate jig and drill guide and drill. Screw holes were established with a hand drill and drill guide. Screws were placed in good alignment and position with excellent bony purchase. They were seated under the locking device. The construct was checked and found to be stable. Intraoperative x-ray was taken which showed good alignment and position of the implants at the appropriate levels of C3 4. There was no evidence of any dural tear or leak. Good hemostasis was maintained. The wound was copiously irrigated and suctioned dry as had been done periodically throughout the case. The platysma was closed with absorbable suture. The subcutaneous tissue was closed. The subcuticular tissue was closed with absorbable suture. The wound was cleaned and dried and dressed appropriately. A soft cervical collar was placed appropriately. The patient was woken up by anesthesia, extubated, transferred back gently to their hospital bed and brought to the recovery room in good stable condition. The patient will be admitted to the hospital for appropriate postoperative care, medical management and monitoring. We will continue to follow them closely about the postoperative course.
[2021-01-12] MEDS: HYDROmorphone 0.5 MG/0.5 ML SYRINGE IVP PRN ×2 (14:11→14:16)
[2021-01-12] MEDS ORDERED: diphenhydrAMINE 50 MG/ML 1 ML VIAL IVP ONE (14:25)
[2021-01-12] MEDS ORDERED: HYDROmorphone 1 MG/ML 1 ML SYRINGE IVP ONE (14:53)
[2021-01-12] MEDS ORDERED: hydrALAZINE HCL 20 MG/ML 1 ML VIAL IVP ONE (15:30)
[2021-01-12] MEDS ORDERED: HYDROmorphone 0.5 MG/0.5 ML SYRINGE IVP ONE (15:35)
--- NOTE | 2021-01-12 16:02 | XR ---
Minute cervical spine HISTORY: Needle placement Single lateral view the cervical spine, correlation to prior MRI 12/20/2020 There is a needle present at the C3-4 disc space level. Patient is status post anterior cervical fusi on and discectomy at C4-5. Endotracheal tube is present. There are overlying artifacts. impression: Orthopedic localization.
--- NOTE | 2021-01-12 16:11 | XR ---
Cervical spine HISTORY: Cervical fusion Single lateral view of the cervical spine correlated to cervical spine same dated earlier time There has been interval fusion at C3-4 with intervertebral spacing block placement. Alignment is stab le, anatomic. There are overlying artifacts. IMPRESSION: Orthopedic follow-up.
[2021-01-12] MEDS: SODIUM CHLORIDE 0.9% 1,000 ML IV SCH (17:25)
[2021-01-12] MEDS ORDERED: hydrALAZINE HCL 20 MG/ML 1 ML VIAL IVP PRN (18:33)
[2021-01-12] MEDS ORDERED: LORazepam 2 MG/ML INJ IV STA (18:35)
[2021-01-12] MEDS ORDERED: HYDROcodone/APAP 10-325MG 1 EACH TAB PO PRN (18:36)
[2021-01-12] MEDS: HYDROmorphone 2 MG/ML 1 ML SYRINGE IVP PRN ×2 (19:36→23:30)
[2021-01-12] MEDS: diazePAM 5 MG TAB PO PRN (22:09)
[2021-01-13] MEDS: HYDROmorphone 2 MG/ML 1 ML SYRINGE IVP PRN ×2 (03:33→08:22)
[2021-01-13] MEDS: diazePAM 5 MG TAB PO PRN ×2 (04:33→08:30)
[2021-01-13] MEDS: SODIUM CHLORIDE 0.9% 1,000 ML IV SCH (04:47)
[2021-01-13 07:16] VITALS: BP 180/122; PULSE 111; RESP 16; TEMP 98.3
--- NOTE | 2021-01-13 08:08 | P.DS ---
Providers Date of admission: 01/12/21 23:55 Attending physician: Roger Thurman Primary care physician: Stated None Hospital Course: The patient presented on the day of admission as per their operative note. The patient was having evidence of early cervical myelopathy and had significant stenosis at C3 4 above his prior fusion at C4 5. He says his neck is doing okay. He is able to tolerate food and diet. He is able to turn around the room and using his arms well. He had issues with pain control overnight but that seems to be improving now. The patient is agitated at times with significant pressured speech. During those periods his blood pressure increases significantly but upon settling down with discussion his blood pressure response. Is not having any new focal neurologic deficits. Physical Exam The incision site is clean dry and intact. There is no erythema no drainage. There is no purulence no evidence of infection. His neck is soft and supple. There is no drainage. The incision looks great Abdomen soft and nontender. Chest has good excursion with deep inspiration and expiration. The patient has active and passive range of motion intact at the upper and lower extremities. There is no acute change in neurologic status. He is using his arm well. He has good strength in his hands this morning. He is amatory around the room. Hospital Course Postoperative day #1 status post anterior cervical decompression with discectomy and fusion C3 4 for the disc herniation with severe stenosis and early cervical myelopathy. The surgery itself patient appears to be responding appropriately. He has had some pain medication issues over the evening but this seems to be better controlled now. He has been on chronic Suboxone which added to the difficulty of his pain control. The patient has been making adequate progress postope ratively. They have completed the prophylactic antibiotics without any signs or symptoms of infection. The patient has been able to advance their diet, and is tolerating diet adequately. The pain was initially controlled with IV medications and is now controlled appropriately with oral medications. The patient has been able to increase their mobilization. I spent almost 45 minutes with the patient this morning at his bedside. He can be quite difficult to manage as he has very pressured speech at times and becomes quite agitated. He is a very intelligent person and he is able to calm down and listen and discussed things very appropriately. He has a very extensive past history and this injury from work has caused further significant issues for him over the past 7 months. Certainly there are numerous new issues and injuries due to his work injury which are still being managed and will require further care. Currently we are managing at his cervical spine and the surgical site appears stable for appropriate healing over the next several months. Typically from a cervical spine surgery maximal medical improvement may range from 6-12 months. Oftentimes it is stable enough to increase activity after 3 months and we discussed this today. The cervical spine is only one issue for him and that may involve a number of different systems as he has had symptoms consistent with myelopathy due to the herniation and stenosis at C3 4. This may cause long-term issues for him and may cause permanent issues as well and I tried to explain and today. The patient also has issues at his lumbar spine which she would like us to continue to evaluate and treat. Before we would pursue surgical intervention I would like his cervical spine to fully heal for at least 3 months. He can cont inue conservative treatment for this. He should continue treatment for his abdominal issues and severe constipation issues with his regular doctor and medicine and surgery. We explained this again today. The patient also says that he sees a counselor regularly. Certainly this can be of benefit for him given his propensity towards agitation pressured speech. I discussed this with him at length today as well. The patient has progressed appropriately in terms of his neck surgery. I think they are in good stable condition for discharge today. They will be sent home with appropriate prescriptions. I answered their questions to the best of my ability in a language that they can understand and they are agreeable with the plan. They will follow up as directed in approximately 2 weeks or sooner if he has any problems. Patient Condition at Discharge: Fair Plan - Discharge Summary Discharge Rx Participant: Yes New Discharge Prescriptions: New HYDROcodone/APAP 7.5-325MG [[place] 7.5-325] 1 tab PO Q4H PRN #42 tab PRN Reason: Pain No Action HYDROcodone/APAP 5-325MG [[place] 5-325] 1 tab PO Q8HR PRN PRN Reason: Pain Discharge Medication List HYDROcodone/APAP 5-325MG [[place] 5-325] 1 tab PO Q8HR PRN 01/11/21 [History] HYDROcodone/APAP 7.5-325MG [[place] 7.5-325] 1 tab PO Q4H PRN #42 tab 01/12/21 [Rx] Follow up Appointment(s)/Referral(s): Roger Thurman, [Doctor of Osteopathic Medicine] - 2 Weeks Activity/Diet/Wound Care/Special Instructions: Keep site clean. May shower with waterproof Tegaderm intact. Do not soak in a tub. After 72 hours postoperatively, patient May remove dressing and then may shower with area uncovered. Leave glue intact and allow it to fray off on its own. May ambulate as tolerated. Avoid heavy or rigorous activity. No repetitive bending twisting or lifting. No overhead work.
[2021-01-13] MEDS ORDERED: SENNOSIDES-DOCUSATE SODIUM 1 EACH TAB PO SCH (09:00)
== END 2021-01-13 10:00 | disposition home or self-care (01) ==
LOC: OR 10:40 → 4SSUR 15:02 → OR 23:55
PROVIDERS: ADMIT Orthopaedic Surgery Orthopaedic Surgery of the Spine; ATTEND Orthopaedic Surgery Orthopaedic Surgery of the Spine
DX: M48.02 Spinal stenosis, cervical region (principal); M50.01 Cervical disc disorder with myelopathy, high cervical region; K59.00 Constipation, unspecified; R45.1 Restlessness and agitation; F17.218 Nicotine dependence, cigarettes, with other nicotine-induced disorders; M51.34 Other intervertebral disc degeneration, thoracic region; M48.062 Spinal stenosis, lumbar region with neurogenic claudication; M51.16 Intervertebral disc disorders with radiculopathy, lumbar region; M43.16 Spondylolisthesis, lumbar region; M54.5 Low back pain; M79.18 Myalgia, other site; R20.2 Paresthesia of skin; R29.2 Abnormal reflex; F31.9 Bipolar disorder, unspecified; F41.9 Anxiety disorder, unspecified; F43.10 Post-traumatic stress disorder, unspecified; F90.9 Attention-deficit hyperactivity disorder, unspecified type; Z98.1 Arthrodesis status; Z79.891 Long term (current) use of opiate analgesic
CPT/HCPCS: 22551; 22853; 20930; 86900 ×2; 86901 ×2; 86850 ×2; 72020; G0378; C1713; C1762; J2250; J2060; J1170 ×4; J0360; J1200; J0690 ×2; J2405; J2001; J3010; J2370; J0330; J2704

== ENCOUNTER → 2021-05-21 | Outpatient (CLI) | payer OTHER ==
--- NOTE | 2021-05-21 09:20 | XR ---
EXAMINATION TYPE: XR chest 2V DATE OF EXAM: 05/21/2021 COMPARISON: 01/08/2021 INDICATION: Presurgical clearance, chest pain TECHNIQUE: Frontal and lateral views of the chest are obtained. FINDINGS: The heart size is normal. The pulmonary vasculature is normal. The lungs are clear. IMPRESSION: 1. No acute pulmonary process.
[2021-05-21 09:29] LABS: Basophils % (A) 0 %; Eosinophils % (A) 0 %; HGB 17.6 gm/dL (13.0-17.5); Lymphocytes # (A) 1.8 k/uL (1.0-4.8); Lymphocytes % (A) 19 %; MCH 30.9 pg (25.0-35.0); MCHC 33.2 g/dL (31.0-37.0); MCV 93.1 fL (80.0-100.0); Mean Platelet Volume 7.1; Monocytes # (A) 0.4 k/uL (0-1.0); Monocytes % (A) 4 %; Neutrophils # (A) 6.9 k/uL (1.3-7.7); Neutrophils % (A) 75 %; Platelet Count 184 k/uL (150-450); RBC 5.69 m/uL (4.30-5.90); RDW 13.8 % (11.5-15.5); WBC 9.3 k/uL (3.8-10.6)
[2021-05-21 09:45] LABS: African American GFR (CKD) >90 (>60 ml/min/1.73 sqM); Anion Gap 7 mmol/L; Blood Urea Nitrogen 14 mg/dL (9-20); Calcium 10.1 mg/dL (8.4-10.2); Carbon Dioxide 28 mmol/L (22-30); Chloride 102 mmol/L (98-107); Glucose 120 mg/dL (74-99); Non-African American GFR(CKD) >90 (>60 ml/min/1.73 sqM); Potassium 4.1 mmol/L (3.5-5.1); Sodium 137 mmol/L (137-145)
[2021-05-21 09:58] LABS: Partial Thromboplastin Time 24.1 sec (22.0-30.0); Prothrombin Time 10.7 sec (9.0-12.0)
[2021-05-21 10:10] LABS: Appearance,Urine Clear (Clear); Bilirubin,Urine Negative (Negative); Blood,Urine Negative (Negative); Color,Urine Yellow; Glucose,Urine (UA) Negative (Negative); Ketones,Urine Negative (Negative); Leukocyte Esterase,Urine Trace (Negative); Mucus,Urine Rare /hpf; Nitrite,Urine Negative (Negative); Protein,Urine Trace (Negative); RBC,Urine 1 /hpf (0-5); Specific Gravity,Urine 1.025 (1.001-1.035); Squamous Epithelial Cell,Urine <1 /hpf (0-4); WBC,Urine 3 /hpf (0-5)
== END | disposition home or self-care (01) ==
LOC: LABPAT 08:32
PROVIDERS: ATTEND Orthopaedic Surgery Orthopaedic Surgery of the Spine
DX: Z01.812 Encounter for preprocedural laboratory examination (principal); M51.9 Unspecified thoracic, thoracolumbar and lumbosacral intervertebral disc disorder
CPT/HCPCS: 36415; 71046; 80048; 81001; 85025; 85610; 85730; 87070

== ENCOUNTER 2021-05-25 12:07 | Inpatient (IN) | payer OTHER ==
[2021-05-23 13:24] VITALS: BMI 20.9
[~2021-05-25 12:07] MED LIST changes: -DEXAMETHASONE SOD PHOSPHATE 4 MG/ML 1 ML VIAL IV ONE; -LIDOCAINE 1% (10MG/ML) FOR IV START INTRADERMA PRN; -ONDANSETRON 4 MG/2 ML VIAL IVP ONE
[2021-05-25] MEDS ORDERED: LIDOCAINE 1% (10MG/ML) FOR IV START INTRADERMA PRN (12:08)
[2021-05-25] MEDS ORDERED: ONDANSETRON 4 MG/2 ML VIAL IVP ONE (12:08)
[2021-05-25] MEDS: LACTATED RINGERS 1,000 ML IV SCH (12:37)
[2021-05-25] MEDS: HYDROmorphone 0.5 MG/0.5 ML SYRINGE IVP PRN ×3 (12:53→17:28)
[2021-05-25] MEDS ORDERED: PROPOFOL 10 MG/ML 20 ML VIAL IV ONE (13:42)
[2021-05-25] MEDS ORDERED: PHENYLEPHRINE-0.9% NACL SYG 1,000 MCG/10 ML SYRINGE ONE (13:42)
[2021-05-25] MEDS ORDERED: GLYCOPYRROLATE 0.2 MG/ML 2 ML VIAL ONE (13:42)
[2021-05-25] MEDS ORDERED: LIDOCAINE 1% INJ 10MG/ML (20 ML MDV) ONE (13:42)
[2021-05-25] MEDS ORDERED: SUCCINYLCHOLINE CHLORIDE 100 MG/5 ML SYR IV ONE (13:42)
[2021-05-25] MEDS ORDERED: HYDROmorphone (PF) 1 MG/ML ONE (13:42)
[2021-05-25] MEDS ORDERED: fentaNYL (PF) 50 MCG/ML 2 ML AMP ONE (13:42)
[2021-05-25] MEDS ORDERED: NEOSTIGMINE 1 MG/ML 10 ML VIAL ONE (13:42)
[2021-05-25] MEDS ORDERED: ROCURONIUM 10 MG/ML (5 ML VIAL) IV ONE (13:42)
[2021-05-25] MEDS ORDERED: MIDAZOLAM 2 MG/2 ML VIAL ONE (13:42)
[2021-05-25] MEDS ORDERED: GELATIN SPONGE,ABSORB (SMALL) 1 EACH SPONGE TOPICAL ONE (14:14)
[2021-05-25] MEDS ORDERED: THROMBIN (BOVINE) 5,000 UNIT VIAL TOPICAL ONE (14:15)
[2021-05-25] MEDS ORDERED: BUPIVACAIN-EPI 0.25%-1:200,000 30 ML VIAL SQ ONE (14:19)
[2021-05-25] MEDS ORDERED: LACTATED RINGERS 1,000 ML IV ONE ×2 (15:02→17:52)
[2021-05-25] MEDS ORDERED: methylPREDNISolone ACETATE 40 MG/ML 1 ML VIAL MISCELLANE ONE (16:44)
--- NOTE | 2021-05-25 16:52 | XR ---
Fluoroscopy HISTORY: Lumbar fusion 21 seconds fluoroscopy time supplied to the referring clinician. 4 intraoperative C-arm images docum ent the procedure. See dictated report from orthopedic surgery.
[2021-05-25] MEDS ORDERED: SENNOSIDES-DOCUSATE SODIUM 1 EACH TAB PO PRN (17:09)
[2021-05-25] MEDS ORDERED: MAGNESIUM HYDROXIDE 2,400 MG/10 ML CUP PO PRN (17:09)
[2021-05-25] MEDS ORDERED: HYDROmorphone 1 MG/ML 1 ML SYRINGE IVP PRN (17:09)
[2021-05-25] MEDS ORDERED: ONDANSETRON 4 MG/2 ML VIAL IVP PRN (17:09)
[2021-05-25] MEDS ORDERED: BENZOCAINE/MENTHOL LOZENG 1 EACH LOZENGE MUCOUS MEM PRN (17:09)
[2021-05-25] MEDS ORDERED: oxyCODONE-APAP 10-325MG 1 EACH TAB PO PRN (17:11)
--- NOTE | 2021-05-25 17:21 | P.OP ---
Date of Procedure: 05/25/21 Preoperative Diagnosis: Spondylolisthesis L4 5, severe spinal stenosis L4 5, low back pain, lower extremity radiculopathy, herniated nucleus pulposis L1-2, right lower extremity radiculopathy, history of mild cauda symptoms Postoperative Diagnosis: Same Anesthesia: GETA Pathology: none sent Condition: stable Disposition: PACU Description of Procedure: DESCRIPTION OF PROCEDURE(S): BRIEF OPERATIVE NOTE Preoperative Diagnosis: Spondylolisthesis L4 5, severe spinal stenosis L4 5, lower extremity radiculopathy, low back pain, herniated nucleus pulposis L1-2, right lower extremity radiculopathy, mild cauda symptoms. Postoperative Diagnosis: Same Procedure: Through a separate incision but under the same anesthesia we performed a laminectomy decompression at L1 2 with partial discectomy at L1 - 2 Laminectomy and decompression L4 [address] navigation aided Minimally invasive Posterior lateral decompression and facet fusion L4 5 Minimally invasive Transforaminal lumbar interbody fusion for a 360 fusion L4 5 Discectomy for decompression L4 5 Placement of interbody graft L4 5 Use of computer navigation for fusion Local autogenous bone grafting Aspiration of bone marrow from the vertebral body pedicle L4 on the right Use of bone graft extenders Surgeon: Dr. Thurman Embryology Professor: Eddie BARTLETT who is present throughout the entire the case persistence during positioning, dissection, exposure, visualization, and all crucial elements of the case as well as closure. Anesthesia: General anesthesia per Estimated blood loss: Approximately 200 mL Complications: None apparent Components implanted: K2M minimally invasive [place] pedicle screw system withscrews measuring 6.5 mm in diameter to rods one [place] interbody cage with 10 mL of osteo amp bio4 bone graft substitute and 30 mL of the BX bone fibers to supplement the local autogenous bone graft and bone marrow aspirate Disposition: To recovery room in good stable condition. OPERATIVE INDICATIONS The patient has had severe issues at their lower extremity in her lower back over the past several years with significant worsening over the past several months. He also been having some cauda equina type symptoms with some changes in his urinary retention. Over the past few months the patient had pain at their back and their lower extremities. The patient is having severe radicular symptoms at their lower extremity with weakness. The patient is having significant pain in their back. They are unable to obtain any comfort. We did aggressive conservative treatment with medications therapy and interventional pain management however thery were not having any relief. The patient also showed evidence of a listhesis with some dynamic instability and severe spinal stenosis L4 5 which seemed to directly correlate with his low back and many of his lower extremity symptoms. The patient was also found have a disc herniation on the right side at L1 to which correlated with some of his urinary retention symptoms possibly irritating at his cauda equina. Of note the consent had read T12-L1 however on review of the imaging it was clear that the disc herniation was not at T12-L1 but rather at L1-2 and we proceed with laminectomy decompression at L1 2 as planned where the pathology was of note. The patient has been through conservative treatment. We discussed various treatment options including surgery, and the patient wishes to proceed with surgery We discussed the risk, patient's alternatives and benefits of surgery including but not limited to, risk of bleeding risk of infection, risk of need for further surge ry, risk of decreased, loss of motion, muscle function, malunion nonunion, hardware failure, nerve damage, paralysis, heart attack, blindness and . They understood issues with the current pandemic and the possibility of exposure. OPERATIVE SUMMARY After discussing all the risks, patient alternatives and benefits at length, the patient elected to proceed with surgical intervention, signed informed consent, and presented for their procedure. The patient was seen and examined in the preoperative holding area and the surgical site was marked. The patient was given antibiotics and brought to the operating room. The patient was sedated and intubated by anesthesia in standard fashion. The patient was positioned on to the operating room table in a prone position on the appropriate frame which was well-padded and well molded. We were careful to pad any bony prominences and pressure points. We were careful to maintain the patient's cervical spine and good neutral alignment and position throughout. The patient was prepped and draped in a normal standard fashion. An appropriate timeout and keystone protocol performed. We were able to proceed with the surgery. The local wound area was infiltrated with local anesthetic. Over the right iliac crest I was able to make small stab incisions and establish a guidepin screw fixation to the iliac crest 2. I was able place the computer referencing device over the guidepins to establish an appropriate reference point for the [facility]iem CT navigation. We then were able to place patient in an appropriate drape and do a navigation spin for visualization and 3-D reconstruction of the lumbar spine. I was able utilize C-arm guidance and navigation to establish appropriate position over the pedicles bilaterally at the appropriate levels . With the appropriate levels confirmed was able to make small incisions over the appropriate pedicle sites bilaterally at L4 5. Utilizing the computer navigation device I was able to establish bony landmarks at the right iliac crest for a bony reference point for the navigation device. I was able to establish a Jamshidi needle over the lateral aspect of the pedicle and advanced the trocar into the pedicle being careful not to breech superiorly inferiorly medially or laterally using computer navigation device. Position was confirmed regularly with AP and lateral images on C-arm and with the computer navigation device at the appropriate levels bilaterally at L4 5. I was able to establish the trocar into the pedicle appropriately into the posterior aspect of the vertebral body bilaterally at the appropriate levels. This was done at each of the pedicle positions and each of the vertebrae. At the superior vertebrae at L4 I was able to take approximately 25 mL of bone aspiration for use later in the case to supplement the allograft and autograft bone. I was able place the guidewire into the trocar and into the vertebral body appropriately under C-arm guidance. Dissection was taken down over the wire to the appropriate starting position for the screw placed. The appropriate length screw was chosen, threaded over the guidewire and screwed appropriately into the pedicle and vertebral body under C-arm guidance in excellent alignment and position with good bony purchase. This is done at each of the screw sites at the appropriate levels at L4 and L5.. With the screws intact I extended the incision to connect the screw hole sites on the most symptomatic side on the right. I dissected down to establish access over the pars and lamina to the base of the spinous process. I was able to expose the facet joint. The capsule the facet was taken down and showed some facet arthrosis at the joint. I was able to use a combination of curettes and Kerrison rongeurs and a high-speed drill to take down the facet joint and do a facetectomy. I was able get excellent foraminal decompression and central decompression with undermining across midline to perform a laminectomy centrally and contralaterally. As able get good central decompression. The ligamentum flavum was taken down to further decompress centrally and at bilateral neural foramen. I was able to expose the disc space and visualize the traversing nerve root. Note was made of some disc protrusion and disc herniation that was abutting the traversing nerve root at the level causing further compression of the nerve root. I was able to establish a annulotomy at the appropriate level protecting soft tissue and neural structures. Note was made of some disc desiccation at the disc. I performed a complete discectomy with accommodation of curettes and rasps and scrapers. I was able get good endplate preparation at the disc space. I sized for the appropriate size interbody spacer protecting the soft tissue and neural structures. The wound was copiously irrigated and suctioned dry. There is no evidence of any dural tear or leak. I was able to pack the disc space with local autogenous bone graft as well as a small amount of bone graft which was also placed into the interbody cage itself. Protecting the soft tissue structures and neural structures I was able place the interbody cage in good alignment and good position with good fit and fill at the interbody space. Position was confirmed with C-arm guidance. Good hemostasis maintained. There is no evidence of any dural tear or leak. The wound was irrigated and suctioned dry. With the hardware intact, intraoperative C-arm imaging was again taken which showed good alignment and position of the hardware at the appropriate levels at L4 5. We were then able to measure, contour and place the rods and appropriate hardware bilaterally. I was able to place capcrews, tighten them down, and torque them with the torque screwdriver appropriately. With this intact I was able to place the local autogenous bone graft with additional bone graft enhancer as necessary into the posterior lateral gutters over the decorticated transverse processes and facet joints on the contralateral side. The remainder of the bone graft was placed over the facet joint on the contralateral side after taking down the facet joint capsule. With the bone graft intact, a stable construct, and good decompression at the appropriate levels, we were able to proceed with closure. Good hemostasis was maintained. There is no evidence of dural tear or leak. The fascia was closed for a watertight closure. he subcuticular tissue was closed with absorbable suture. At this point I dressed the space at L1-2. C-arm was utilized to establish pocket level at L1-2. Appropriate incision was made over L1-2 and dissection was taken place over the right side at the interspace at L1-2. Positive confirmation of level was obtained with C-arm guidance. I was able to proceed with laminectomy and partial medial facetectomy. I took great care to make sure I was lateral in my approach and a partial facetectomy was performed. I made sure to avoid any undue tension of the dura or toward the midline easily. I was able to expose the disc space. There was small extruded fragment which I was able to excise. There is some fatty tissue and significant vascular sedation which was cauterized and the fatty tissue was removed and I felt we had good decompression at the level. There is no further extruded fragment no obvious stenosis at the area. The area was explored and found have no evidence of further stenosis. With this completed I copiously irrigated and suctioned dry the wound the fascial layer was closed with #1 Vicryl subcutaneous tissue closed with 2-0 Vicryl subcuticular tissues closed for a Vicryl The wounds were cleaned and dried and dressed with the appropriate dressing. The drapes were broken down. The patient was gently rolled back onto their hospital bed being careful to maintain their cervical spine and good neutral alignment and position. They were woken up by anesthesia, extubated, and brought to the recovery room in good stable condition. The patient will be admitted to the hospital for appropriate postoperative care, medical management and monitoring. We will continue to follow them closely about the postoperative course.
[2021-05-25] MEDS ORDERED: fentaNYL (PF) 50 MCG/ML 2 ML AMP IVP ONE ×2 (17:43→17:48)
[2021-05-25] MEDS ORDERED: ACETAMINOPHEN IV (For NPO) 1,000 MG/100 ML VIAL IVPB ONE (17:52)
[2021-05-25] MEDS ORDERED: MIDAZOLAM 2 MG/2 ML VIAL IVP ONE (17:59)
[2021-05-25] MEDS: NITROFURANTOIN MONOHYD/M-CRYST 100 MG CAP PO SCH (19:59)
[2021-05-25] MEDS: GABAPENTIN 100 MG CAP PO SCH (19:59)
[2021-05-25] MEDS: diazePAM 5 MG TAB PO PRN (19:59)
[2021-05-25] MEDS: SODIUM CHLORIDE 0.9% 1,000 ML IV SCH (21:16)
[2021-05-25] MEDS: HYDROmorphone 1 MG/ML 1 ML SYRINGE IVP PRN (21:20)
[2021-05-25] MEDS: oxyCODONE-APAP 10-325MG 1 EACH TAB PO PRN (22:45)
[2021-05-26] MEDS: HYDROmorphone 1 MG/ML 1 ML SYRINGE IVP PRN ×7 (00:16→21:17)
[2021-05-26] MEDS: diazePAM 5 MG TAB PO PRN ×4 (01:45→21:16)
[2021-05-26] MEDS: oxyCODONE-APAP 10-325MG 1 EACH TAB PO PRN ×5 (03:39→19:49)
[2021-05-26] MEDS: GABAPENTIN 100 MG CAP PO SCH ×3 (07:35→21:16)
[2021-05-26] MEDS: NITROFURANTOIN MONOHYD/M-CRYST 100 MG CAP PO SCH ×2 (07:35→21:16)
[2021-05-26] MEDS: SENNOSIDES-DOCUSATE SODIUM 1 EACH TAB PO SCH (07:35)
[2021-05-26] MEDS: CYCLOBENZAPRINE 10 MG TAB PO PRN ×3 (07:55→23:37)
--- NOTE | 2021-05-26 09:26 | P.PN ---
Progress Note - Text Progress Note Date: 05/26/21 Postoperative day #1 Patient is seen and examined today at bedside. The patient has some pain around the surgical site as expected. Pain is not being controlled very well with current medication. The patient says he is unable to get up and had to have 3 people help him to sit up. His lower extremities are doing okay without any new neurologic deficit. He was not able to void on his own. Physical Exam Afebrile with stable vital signs Abdomen is soft nontender. Chest has good excursion deep and space expiration There is swelling around the upper lumbar wound. There is no active bleeding. There is hematoma developing at the subcutaneous space. It is not tense. The other incision sites are doing well. The incision site is clean dry and intact. No erythema there is no purulence. Extremities have not had neurologic change from prior to surgery. He has sustained dorsal flexion plantar flexion and EHL intact Calves and thighs were soft nontender without evidence of DVT. Assessment/Plan Postoperative day #1 status post minimally invasive decompression and fusion L4 5 with laminectomy decompression L1 -2 for his spondylolisthesis with severe stenosis at L4 5 and disc herniation at L1 to 2 Patient is progressing somewhat slowly as expected from the surgery. He has s ome history of difficulty with pain control and we are having some difficulty with his control at this point. We will increase the Dilaudid to 2 mg every 4 hours which is slightly less frequent than prior with a higher dose. Hopefully we will be able to convert him over to orals so that he can start to transition for discharge for home. We will have to start to transition tomorrow morning. We will continue to increase the patient's mobilization with therapy. He is not able to get up onto his feet with therapy this morning but was able to sit up to the side of the bed. He has a hematoma developing at the upper wound area. It appears to be stable. It is somewhat diffuse and nontender. Her like to have ice over the area at least every 4 hours. We will continue pain control with oral or IV medications. We'll continue to follow patient closely.
[2021-05-26 10:24] LABS: Basophils % (A) 0 %; Eosinophils % (A) 0 %; HCT 44.2 % (39.0-53.0); HGB 15.2 gm/dL (13.0-17.5); Lymphocytes # (A) 0.9 k/uL (1.0-4.8); Lymphocytes % (A) 6 %; MCH 31.4 pg (25.0-35.0); MCHC 34.3 g/dL (31.0-37.0); MCV 91.5 fL (80.0-100.0); Mean Platelet Volume 7.3; Monocytes # (A) 0.8 k/uL (0-1.0); Monocytes % (A) 5 %; Neutrophils # (A) 13.9 k/uL (1.3-7.7); Neutrophils % (A) 88 %; Platelet Count 166 k/uL (150-450); RBC 4.83 m/uL (4.30-5.90); RDW 13.5 % (11.5-15.5); WBC 15.8 k/uL (3.8-10.6)
[2021-05-26 10:33] LABS: African American GFR (CKD) >90 (>60 ml/min/1.73 sqM); Anion Gap 4 mmol/L; Blood Urea Nitrogen 7 mg/dL (9-20); Calcium 9.4 mg/dL (8.4-10.2); Carbon Dioxide 28 mmol/L (22-30); Chloride 100 mmol/L (98-107); Glucose 124 mg/dL (74-99); Non-African American GFR(CKD) >90 (>60 ml/min/1.73 sqM); Potassium 3.9 mmol/L (3.5-5.1); Sodium 132 mmol/L (137-145)
[2021-05-26] MEDS: SODIUM CHLORIDE 0.9% 1,000 ML IV SCH ×2 (13:09→15:02)
[2021-05-26] MEDS: LACTATED RINGERS 1,000 ML IV SCH (16:12)
[2021-05-27] MEDS: HYDROmorphone 1 MG/ML 1 ML SYRINGE IVP PRN ×6 (01:14→21:15)
[2021-05-27] MEDS: diazePAM 5 MG TAB PO PRN ×4 (03:20→21:15)
[2021-05-27] MEDS: oxyCODONE-APAP 10-325MG 1 EACH TAB PO PRN ×6 (03:22→23:24)
[2021-05-27] MEDS: SODIUM CHLORIDE 0.9% 1,000 ML IV SCH ×3 (03:23→15:23)
[2021-05-27] MEDS: GABAPENTIN 100 MG CAP PO SCH ×3 (07:08→21:15)
[2021-05-27] MEDS: SENNOSIDES-DOCUSATE SODIUM 1 EACH TAB PO SCH (07:08)
[2021-05-27] MEDS: NITROFURANTOIN MONOHYD/M-CRYST 100 MG CAP PO SCH ×2 (07:10→21:15)
--- NOTE | 2021-05-27 08:58 | P.PN ---
Progress Note - Text Progress Note Date: 05/27/21 Orthopedic Spine History of present illness: Patient is a pleasant 45-year-old male who is seen and examined at the bedside following L4-5 posterior lateral decompression and fusion and L1-2 laminectomy decompression performed Sunday. He is currently lying comfortable in bed. He does state he has had significant pain in regards to his lumbar spine. He has had difficulty with mobility due to his pain. Nursing states he was unwilling to work with physical therapy yesterday. He has not had a bowel movement postoperatively but has been passing gas. He is not experiencing any significant abdominal pain. He does not have any abdominal distention. He is urinating without difficulty. He does have a hematoma at the surgical site of the L1-2 laminectomy and decompression. Ice has been recommended over the surgical site. Nursing states ice had been applied throughout the evening. Patient does continue to require significant pain medications. Patient states pain has been adequately controlled. Patient is eating and voiding freely without difficulty. Physical Exam Lumbar Fusion: Status post surgical day number 2 Patient is awake, alert, and oriented 3 Vital signs stable Good chest excursion with deep inspiration and expiration Abdomen soft nontender Dorsiflexion, plantarflexion, and extensor hallucis longus positive sustained bilaterally No signs or symptoms of DVT; no calf pain; pneumatic cuffs are currently intact bilateral lower extremities Optifoam dressings are dry and intact over the lumbar spine and right iliac crest with 2 small spots of dried blood; no erythema, purulence, or signs of infection Midline incision over the surgical site at L1-2 shows some blood saturation into mid inferior portion of the dressing without active drainage out of the surgical dressing Evidence of some swelling over the surgical site at L1-2 which is soft with palpation Neurovascularly intact bilaterally lower extremities Assessment: Status post L4-5 minimally invasive posterior lateral decompression and fusion with transforaminal lumbar interbody fusion Sstatus post L1-2 laminectomy decompression Low back pain Postoperative hematoma at the surgical site of the L1-2 Occasional tobacco use History cervical fusion History of fall Plan: 1. Ambulate as tolerated; work with Physical Therapy to increase mobilization; patient is encouraged to work with physical therapy today as he declined physical therapy yesterday 2. Continue pain control with IV and oral medications; will plan to begin weaning the patient off of IV narcotic medication in anticipation for discharge home in the next 1-2 days 3. Dressings to remain intact with Optifoam; patient may shower with dressings intact; we will plan to change dressings tomorrow at the bedside 4. Continue with ice packs over the surgical sites the lumbar spine most significantly at the L1-2 surgical site 5. We will continue to follow the patient closely; depending on the patient's progress, we may plan for discharge home over the weekend 6. Patient can follow-up with Eddie Cho PA-C or Dr. Jay Thurman at [facility] in 2-3 weeks following discharge
[2021-05-27] MEDS: CYCLOBENZAPRINE 10 MG TAB PO PRN ×2 (11:29→19:22)
[2021-05-27] MEDS: LACTATED RINGERS 1,000 ML IV SCH (12:35)
[2021-05-28] MEDS: HYDROmorphone 1 MG/ML 1 ML SYRINGE IVP PRN ×6 (01:23→21:47)
[2021-05-28] MEDS: SODIUM CHLORIDE 0.9% 1,000 ML IV SCH (01:23)
[2021-05-28] MEDS: oxyCODONE-APAP 10-325MG 1 EACH TAB PO PRN ×5 (03:23→21:01)
[2021-05-28] MEDS: CYCLOBENZAPRINE 10 MG TAB PO PRN ×3 (03:23→20:29)
[2021-05-28] MEDS: diazePAM 5 MG TAB PO PRN ×3 (03:24→16:33)
[2021-05-28] MEDS: SENNOSIDES-DOCUSATE SODIUM 1 EACH TAB PO SCH (08:39)
[2021-05-28] MEDS: NITROFURANTOIN MONOHYD/M-CRYST 100 MG CAP PO SCH ×2 (08:40→21:46)
[2021-05-28] MEDS: GABAPENTIN 100 MG CAP PO SCH ×3 (08:40→21:46)
--- NOTE | 2021-05-28 10:10 | P.PN ---
Progress Note - Text Progress Note Date: 05/28/21 Postoperative day #3 Patient is seen and examined today at bedside. The patient has some pain around the surgical site as expected, but this seems to be improving as his mobilization is improving today. Pain is being controlled with medication. He has been able to void freely. He is tolerating his diet. He denies any chest pain or shortness of breath. Physical Exam Afebrile with stable vital signs Abdomen is soft nontender. Chest has good excursion deep and space expiration The incision site is clean dry and intact. No erythema there is no purulence. There is some mild swelling which appears to be stable. There is no worsening hematoma. There is no drainage. The incision sites are healing appropriately. He has sustained dorsal flexion plantar flexion and EHL intact. Extremities have not had neurologic change from prior to surgery. Calves and thighs were soft nontender without evidence of DVT. Assessment/Plan Postoperative day #3 status post minimally invasive decompression fusion L4 5 for his spondylolisthesis with spinal stenosis along with laminectomy decompres golden with discectomy at L1-2 hard disc herniation Patient is progressing somewhat slowly as expected from the surgery. He is making progress nonetheless. He seems to be turning the corner to some degree with his mobilization. He is able to sit up in bed all by himself and stand up with a walker in front of them independently. He still very shaky with further mobilization but this is encouraging. His incision site seems to be stable and healing appropriate. There is no increase in hematoma. I think that this will diminish well. He is hopeful to increase his physical therapy and I think that is encouraging. We will continue to increase the patient's mobilization with therapy. He is trying to make attempts to space out his medications. He is still requiring regular IV medication but is determined to sit wean off of these and is hopeful to be off of the IV medication by tomorrow. If he is able to he is hopeful to be discharged home tomorrow if not then possibly Sunday. We will continue pain control with oral or IV medications. We'll continue to follow patient closely.
[2021-05-28] MEDS: LACTATED RINGERS 1,000 ML IV SCH (13:37)
[2021-05-28] MEDS ORDERED: LORazepam 2 MG/ML INJ IV STA (16:48)
[2021-05-28] MEDS ORDERED: cloNIDine HCL 0.1 MG TAB PO PRN (17:13)
[2021-05-28] MEDS ORDERED: LORazepam 2 MG/ML INJ IV PRN ×3 (17:14)
[2021-05-28] MEDS ORDERED: THIAMINE 100 MG/ML 2 ML VIAL IM STA (17:14)
[2021-05-28] MEDS ORDERED: 1: MVI, ADULT NO.4 WITH VIT K 10 ML, THIAMINE 100 MG, FOLIC ACID 1 MG in SODIUM CHLORIDE IV SCH ×4 (17:30)
[2021-05-28] MEDS: THIAMINE 100 MG TAB PO SCH ×2 (17:41→17:42)
[2021-05-28] MEDS: cloNIDine HCL 0.1 MG TAB PO SCH ×2 (17:42→21:46)
[2021-05-28] MEDS: amLODIPine 10 MG TAB PO SCH (17:42)
[2021-05-28] MEDS: NICOTINE 14MG/24HR PATCH TRANSDERM SCH (17:56)
[2021-05-28 18:24] LABS: Appearance,Urine Clear (Clear); Bilirubin,Urine Negative (Negative); Blood,Urine Negative (Negative); Color,Urine Yellow; Glucose,Urine (UA) Negative (Negative); Ketones,Urine Negative (Negative); Leukocyte Esterase,Urine Negative (Negative); Nitrite,Urine Negative (Negative); PH, Urine 7.5 (5.0-8.0); Protein,Urine Negative (Negative); Specific Gravity,Urine 1.016 (1.001-1.035); Urobilinogen,Urine <2.0 mg/dL (<2.0)
[2021-05-28 18:45] LABS: Amphetamine Screen,Urine Not Detected (NotDetected); Barbiturate Screen,Urine Not Detected (NotDetected); Benzodiazepines Screen,Urine Detected (NotDetected); Cocaine Screen,Urine Not Detected (NotDetected); Methadone Screen, Urine Not Detected (NotDetected); Opiate Screen,Urine Detected (NotDetected); Oxycodone Screen, Urine Detected (NotDetected); Phencyclidine Screen,Urine Not Detected (NotDetected); Tricyclic Antidepressant,Urine Not Detected (NotDetected); Urn Cannabinoid Scrn Detected (NotDetected)
[2021-05-28] MEDS: METOPROLOL TARTRATE 25 MG TAB PO SCH (20:29)
[2021-05-28] MEDS: HEPARIN SODIUM,PORCINE/PF 5,000 UNIT/0.5 ML SYRINGE SQ SCH (20:32)
[2021-05-28 20:33] VITALS: RESP 18
[2021-05-28] MEDS ORDERED: TEMAZEPAM 15 MG CAP PO PRN (21:00)
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
[2021-05-28] MEDS: LORazepam 1 MG TAB PO PRN (23:42)
[2021-05-29] MEDS: oxyCODONE-APAP 10-325MG 1 EACH TAB PO PRN ×3 (01:00→09:15)
[2021-05-29] MEDS: HYDROmorphone 1 MG/ML 1 ML SYRINGE IVP PRN ×3 (01:50→10:04)
[2021-05-29] MEDS: LORazepam 1 MG TAB PO PRN ×2 (03:46→07:45)
[2021-05-29] MEDS: CYCLOBENZAPRINE 10 MG TAB PO PRN (04:30)
[2021-05-29 04:48] LABS: Basophils # (A) 0.1 k/uL (0-0.2); Basophils % (A) 1 %; Eosinophils # (A) 0.2 k/uL (0-0.7); Eosinophils % (A) 2 %; HGB 14.1 gm/dL (13.0-17.5); Lymphocytes # (A) 1.8 k/uL (1.0-4.8); Lymphocytes % (A) 17 %; MCH 31.1 pg (25.0-35.0); MCHC 33.5 g/dL (31.0-37.0); Mean Platelet Volume 7.5; Monocytes # (A) 0.6 k/uL (0-1.0); Monocytes % (A) 6 %; Neutrophils # (A) 7.6 k/uL (1.3-7.7); Neutrophils % (A) 73 %; Platelet Count 166 k/uL (150-450); RBC 4.52 m/uL (4.30-5.90); RDW 13.7 % (11.5-15.5); WBC 10.5 k/uL (3.8-10.6)
[2021-05-29 05:18] VITALS: TEMP 98.5
[2021-05-29] MEDS: NICOTINE 14MG/24HR PATCH TRANSDERM SCH (07:01)
[2021-05-29] MEDS ORDERED: THIAMINE 100 MG TAB PO SCH (07:30)
[2021-05-29] MEDS: METOPROLOL TARTRATE 25 MG TAB PO SCH (07:44)
[2021-05-29] MEDS: NITROFURANTOIN MONOHYD/M-CRYST 100 MG CAP PO SCH (07:44)
[2021-05-29] MEDS: SENNOSIDES-DOCUSATE SODIUM 1 EACH TAB PO SCH (07:45)
[2021-05-29] MEDS: cloNIDine HCL 0.1 MG TAB PO SCH (07:45)
[2021-05-29] MEDS: GABAPENTIN 100 MG CAP PO SCH (07:45)
[2021-05-29] MEDS: amLODIPine 10 MG TAB PO SCH (07:45)
[2021-05-29] MEDS: HEPARIN SODIUM,PORCINE/PF 5,000 UNIT/0.5 ML SYRINGE SQ SCH (08:58)
[2021-05-29 08:59] VITALS: BP 140/85; PULSE 80
[2021-05-29] MEDS ORDERED: MULTIVITAMINS, THERA 1 EACH TAB PO SCH (09:00)
[2021-05-29 09:02] LABS: African American GFR (CKD) 129.1 (60.0-200.0); Anion Gap 12.2 mmol/L (4.00-12.00); BUN/Creat Ratio 17.18 Ratio (12.00-20.00); Blood Urea Nitrogen 12.3 mg/dL (9.0-27.0); Calcium 9.4 mg/dL (8.7-10.3); Carbon Dioxide 26.2 mmol/L (21.6-31.8); Non-African American GFR(CKD) 111.3 (60.0-200.0); Potassium 4.5 mmol/L (3.5-5.5)
[2021-05-29] MEDS ORDERED: ATORVASTATIN 40 MG TAB PO SCH (09:30)
[2021-05-29] MEDS ORDERED: ASPIRIN 81 MG PO SCH (09:30)
--- NOTE | 2021-05-29 11:20 | P.PN ---
Progress Note - Text Progress Note Date: 05/29/21 Postoperative day #4 Patient is seen and examined today at bedside. He has had a number of episodes where he has been acting out and anxious and yelling. He has been accusing the nursing staff of not giving him his medications and even potentially changing the clocks. We have been going through appropriate protocols and witnessing to assure that medications are being given appropriately. The patient is very anxious and continually brings up his significant medical and pain history which we taken to consideration. He is not having new changes in his lower extremities. He is not having changes in his bowel bladder function. He is not having any obvious cardiac issues. Apparently he does well and generally with the Percocet. He says he is walking the hallway on his own Physical Exam Afebrile with stable vital signs Abdomen is soft nontender. Chest has good excursion deep and space expiration The incision site is clean dry and intact. No erythema there is no purulence.there is no active drainage Extremities have not had neurologic change from prior to surgery.He has sust ained dorsal to plantar flexion and EHL Calves and thighs were soft nontender without evidence of DVT. Troponin is less than 0.012 Assessment/Plan Postoperative day #4 status post minimally invasive decompression fusion for spondylolisthesis with stenosis L4 5 as well as his disc herniation at L1-2 which underwent laminectomy discectomy Patient is having a difficult course postoperatively in terms of his pain tolerance. He has been able to improve his mobilization and seems to have turned the corner in terms of his mobility. He has been able to tolerate some diet he is not nauseous is not vomiting. His surgical site appears to be healing appropriately. There is some early swelling which seems to have stabilized and appears to be healing appropriately without any evidence of infection. He is passing gas and voiding freely. He is not yet had a bowel movement. The patient has significant history of pain. He is experiencing significant anxiety which appears difficult for him to work through. We can try to help with this and help discussed this with him at length. He had further evaluation yesterday with his chest pain. This seems to be somewhat anxiety related. There are some changes on the EKG which were noted from medicine service but he does not appear to be having acute cardiac issues , And his troponins were negative. Yesterday he had to have security standby as the situation became escalated and he was yelling obscenities and the nurses felt intimidated. There able to resolve the situation. He again had been getting upset today when I arrived. We're able to coil the situation and deamplify his anxiety with significant discussion about the situation, his past, and our goals and treatment here in Hospital. I tried to assure him that we are trying to help make his situation easier, despite his feelings that people are deceiving him. We are using significant witnessing and protocols to try to make sure that he is getting the appropriate ordered medications on a timely basis. I do not see any evidence to the contrary of appropriate medications being given. I had not number of discussions with him and his having difficulty keeping track of time and events. This is understandable giving his position in the hospital where he can be easy to lose track time particularly with medications on board. We tried to reassure him that we are working towards appropriate pain control for him. He has been able to increase his mobility. He is tolerating his diet adequately. His wound appears to be stable and healing appropriately. He is voiding freely and passing gas and his labs have made stable. Once he is comfortable with his pain control with plan for him to be discharged home for continued outpatient management. We are planning to arrange for follow-up with cardiology postoperatively as well and he understands this. We will continue to increase the patient's mobilization with therapy. We will continue pain control with oral or IV medications. We'll continue to follow patient closely.
--- NOTE | 2021-05-29 12:09 | P.DS ---
Providers Date of admission: 05/28/21 12:46 Attending physician: Roger Thurman Consults: 05/28/21 16:25 Consult Physician Stat Consulting Provider: Tanika Pena Consult Reason/Comments: medical management and high blood pressure Do you want consulting provider notified?: Yes 05/28/21 17:14 Consult Physician Routine Consulting Provider: Jessica Canales Consult Reason/Comments: chest pain, cad Do you want consulting provider notified?: Yes Primary care physician: Stated None Hospital Course: I returned to the hospital today to discharge the patient. The nurses informed me that he had wanted to sign out AGAINST MEDICAL ADVICE. As I noted earlier and saw the patient and we spent considerable time in the room discussing his issues his pain in his circumstance. I felt that we had quelled the situation adequately. The patient was calm and we are having open discussion. He is still having pain which seem to be controlled to some degree with the medications however he was having some difficulty still with his pain and seen to be having some difficulty after taking Dilaudid IV. As discussed in his note from today, he had been able to increase his mobilization. His wound had remained clear. He is tolerating his diet. His voiding freely and passing gas. His vital signs are stable he's afebrile. His back incision site was clean dry. There is some swelling which was stable without any evidence of infection. His lower extremities have sustained dorsal to plantar flexion and EHL. He had been ambulatory into the halls today. His thighs and calves are soft nontender. Assessment and plan Postoperative day #4 status post minimally invasive decompression fusion at L4 5 for spinal listhesis with spinal stenosis as well as a laminectomy decompression with discectomy L1-L2 for disc herniation. The patient had been having severe problems in his back and his lower extremities and his symptoms correlated with findings on his imaging. He underwent surgical intervention as per his operative note. Patient has long history of pain and number circumstance in his life that regards and has contributed significantly to his issues in his pain symptoms. His symptoms for his lower back and his lower extremity is correlated with many the findings at his imaging and we felt that surgery would, offer him some dental benefit as we discussed prior and as he had undergone in his operative note. Postoperative patient has had difficulties in terms of controlling his pain. We have been monitoring it very closely and trying to assure appropriate medications giving appropriate times following appropriate protocols and witnessing area despite this patient has continued to have some difficulties with his pain control. He has had a number of issues where he has become agitated and these have been documented as well. Nonetheless he seems to be making progress in terms of his spine surgery specifically. He is more mobile. He is in and out of bed independently. He is able to void freely. He is passing gas. He is tolerating small amount of diet. He is not having any nausea or vomiting. In the wound appears to be healing appropriately. Given these factors I felt that it is okay for him to be discharged to home once we could adequately control his pain. We discussed this at length today. We felt we had a plan for continuing his pain regimen with oral and IV me dications as well as muscle relaxers. The patient had settled down considerably when I last saw him, however I received a call stating that he wanted to leave AGAINST MEDICAL ADVICE. We had planned for him to continue his regimen including the IV medications through today and into the night with potential discharge home tomorrow. Apparently the patient felt that he no longer needed the IV medications and couldn't control the pain with oral medications and wanted to be discharged home immediately. I think it is okay for him to be discharged with his oral medications as he feels he can control this better at home and would be more comfortable at his home. We will try to contact him regards to his appropriate follow-up with our office as well as continued medications putting his Percocet 10 mg, completing his oral antibiotics, and his muscle relaxers. He is also planned for follow-up for cardiology as he does have EKG changes. Patient Condition at Discharge: Fair Plan - Discharge Summary Discharge Rx Participant: Yes New Discharge Prescriptions: New diazePAM [Valium] 5 mg PO Q8HR PRN 7 Days #21 tab PRN Reason: Spasms No Action oxyCODONE-APAP 10-325MG [Percocet 10-325 mg] 1 tab PO Q4-6H PRN PRN Reason: Pain Gabapentin [Neurontin] 100 mg PO TID Nitrofurantoin Monohyd/M-Cryst [Macrobid] 100 mg PO DIRECTED Discharge Medication List Gabapentin [Neurontin] 100 mg PO TID 05/23/21 [History] Nitrofurantoin Monohyd/M-Cryst [Macrobid] 100 mg PO DIRECTED 05/23/21 [History] oxyCODONE-APAP 10-325MG [Percocet 10-325 mg] 1 tab PO Q4-6H PRN 05/23/21 [History] diazePAM [Valium] 5 mg PO Q8HR PRN 7 Days #21 tab 05/28/21 [Rx] Follow up Appointment(s)/Referral(s): Eddie Cho PAC [PHYSICIAN HAND MIXER] - 3 Weeks (Patient may follow-up with Eddie Cho PA-C or Dr. Jay Thurman at [facility] in 2-3 weeks following discharge. ) Ike Robert MD [STAFF PHYSICIAN] - 2 Weeks Activity/Diet/Wound Care/Special Instructions: 1. Patient may shower with Optifoam dressing intact. 2. Patient may remove Optifoam dressing in 3 days and shower without a dressing at that time. 3. Patient should refrain from driving until at least after their first follow- up appointment in the office. 4. Patient should avoid excessive bending, twisting, lifting; avoid overhead lifting; no lifting greater than 10 pounds 5. Take medications as prescribed 6. Do not soak in tub Discharge Disposition: HOME SELF-CARE
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
[2021-05-29] MEDS ORDERED: 1: THIAMINE 100 MG, FOLIC ACID 1 MG in SODIUM CHLORIDE 0.9% 1,000 ML 2: SODIUM CHLORIDE IVPB SCH (13:00)
--- NOTE | 2021-05-31 12:07 | CDI ---
Documentation Clarification Form Date: 05/31/2021 11:57:39 AM From: Kalyan Woods Phone: Admit Date: 05/28/2021 12:46:00 PM Patient Name: Gabino Smallwood Visit Number: [id number] Discharge Date: 05/29/2021 12:45:00 PM ATTENTION: The Clinical Documentation Specialists (CDI) and [facility] Coding Staff appreciate your assistance in clarifying documentation. Please respond to the clarification below the line at the bottom and electronically sign. The CDI & [facility] Coding staff will review the response and follow-up if needed. Please note: Queries are made part of the Legal Health Record. If you have any questions, please contact the author of this message via ITS. Dr. Roger Thurman There is documentation of post-op hematoma at surgical site per progress note 05/27/21. Treated with ice. Additional clarification is requested. Need to know if this was clinically significant and should be coded. History/Risk Factors: spinal surgery Clinical Indicators: hematoma at surgical site Treatment: ice Can you please clarify the clinical significance of this diagnosis: [ ] Clinally significant and should be coded as a post-op hematoma and complication of the procedure. [ ] clinically significant and should be coded as a post-op hematoma but not a complication. [ ] Other, please specify [ ] Unable to determine [ ] not clinically significant-do not code MTDD
== END 2021-05-29 12:45 | disposition home or self-care (01) | DRG 460 ==
LOC: OR 12:07 → 5NMEDONC 17:00 → OR 05-26 13:21 → 5NMEDONC 05-26 13:27 → OBSVTOIN 05-28 12:46
PROVIDERS: ADMIT Orthopaedic Surgery Orthopaedic Surgery of the Spine; ATTEND Orthopaedic Surgery Orthopaedic Surgery of the Spine
PROC: 0SG00AJ Fusion of Lumbar Vertebral Joint with Interbody Fusion Device, Posterior Approach, Anterior Column, Open Approach (ICD-10-PCS; principal; 2021-05-25 13:30)
PROC: 0ST20ZZ Resection of Lumbar Vertebral Disc, Open Approach (ICD-10-PCS; 2021-05-25 13:30)
DX: M43.16 Spondylolisthesis, lumbar region (principal); E87.1 Hypo-osmolality and hyponatremia; L76.32 Postprocedural hematoma of skin and subcutaneous tissue following other procedure; M48.061 Spinal stenosis, lumbar region without neurogenic claudication; M47.9 Spondylosis, unspecified; M51.16 Intervertebral disc disorders with radiculopathy, lumbar region; F17.200 Nicotine dependence, unspecified, uncomplicated; F31.9 Bipolar disorder, unspecified; F43.10 Post-traumatic stress disorder, unspecified; G40.909 Epilepsy, unspecified, not intractable, without status epilepticus; I10 Essential (primary) hypertension; I16.0 Hypertensive urgency; I25.10 Atherosclerotic heart disease of native coronary artery without angina pectoris; I45.10 Unspecified right bundle-branch block; F41.9 Anxiety disorder, unspecified; Z20.822 Contact with and (suspected) exposure to COVID-19; Z79.899 Other long term (current) drug therapy; Z85.038 Personal history of other malignant neoplasm of large intestine; Z86.73 Personal history of transient ischemic attack (TIA), and cerebral infarction without residual deficits; Y83.8 Other surgical procedures as the cause of abnormal reaction of the patient, or of later complication, without mention of misadventure at the time of the procedure; Y92.239 Unspecified place in hospital as the place of occurrence of the external cause
CPT/HCPCS: 72100; 80048; 80306; 81003; 84484; 85025; 86850; 86900; 86901; 87635; 93005

== ENCOUNTER 2021-06-05 09:01 | Observation (INO) | payer OTHER ==
[2021-06-05] MEDS ORDERED: NITROGLYCERIN SL TABS 0.4 MG TAB SUBLINGUAL STA ×3 (09:13)
[2021-06-05] MEDS ORDERED: ASPIRIN 81 MG PO STA (09:13)
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
[2021-06-05 09:23] LABS: Basophils # (A) 0.1 k/uL (0-0.2); Basophils % (A) 1 %; Eosinophils # (A) 0.2 k/uL (0-0.7); Eosinophils % (A) 2 %; HCT 42.5 % (39.0-53.0); HGB 14.9 gm/dL (13.0-17.5); Lymphocytes # (A) 2.4 k/uL (1.0-4.8); Lymphocytes % (A) 20 %; MCHC 35.2 g/dL (31.0-37.0); MCV 88.3 fL (80.0-100.0); Mean Platelet Volume 6.6; Monocytes # (A) 0.6 k/uL (0-1.0); Monocytes % (A) 5 %; Neutrophils # (A) 8.9 k/uL (1.3-7.7); Neutrophils % (A) 72 %; RBC 4.81 m/uL (4.30-5.90); RDW 13.6 % (11.5-15.5); WBC 12.4 k/uL (3.8-10.6)
[2021-06-05 09:29] LABS: Platelet Count 426 k/uL (150-450)
[2021-06-05 09:35] LABS: ALT 13 U/L (4-49); AST 24 U/L (17-59); African American GFR (CKD) >90 (>60 ml/min/1.73 sqM); Albumin 4.1 g/dL (3.5-5.0); Alkaline Phosphatase 56 U/L (38-126); Amylase 46 U/L (30-110); Anion Gap 8 mmol/L; Blood Urea Nitrogen 22 mg/dL (9-20); Calcium 9.5 mg/dL (8.4-10.2); Carbon Dioxide 28 mmol/L (22-30); Chloride 102 mmol/L (98-107); Glucose 112 mg/dL (74-99); Lipase 56 U/L (23-300); Non-African American GFR(CKD) >90 (>60 ml/min/1.73 sqM); Sodium 138 mmol/L (137-145); Total Bilirubin 0.6 mg/dL (0.2-1.3); Total Protein 6.9 g/dL (6.3-8.2)
[2021-06-05 09:36] LABS: INR 0.9 (<1.2); Partial Thromboplastin Time 23.3 sec (22.0-30.0); Prothrombin Time 10.1 sec (9.0-12.0)
[2021-06-05] MEDS ORDERED: MORPHINE SULFATE 4 MG/ML SYRINGE IVP STA ×2 (09:39→10:23)
--- NOTE | 2021-06-05 09:57 | XR ---
EXAMINATION TYPE: XR chest 2V DATE OF EXAM: 06/05/2021 COMPARISON: Chest x-ray May 21, 2021 HISTORY: Chest pain. TECHNIQUE: Frontal and lateral views of the chest are obtained. FINDINGS: There is no suspicious new focal air space opacity, pleural effusion, or pneumothorax seen . The cardiac silhouette size is stable and within normal limits. Surgical changes in the cervical s pine is partially imaged. Overlying EKG leads current study. IMPRESSION: No acute process. No significant change from prior.
--- NOTE | 2021-06-05 10:31 | CT ---
EXAMINATION TYPE: CT angio chest DATE OF EXAM: 06/05/2021 10:04 AM COMPARISON: CT of the abdomen and pelvis dated 09/30/2020 HISTORY: chest pain, dyspnea CT DLP: 255.3 mGycm Automated exposure control for dose reduction was used. CONTRAST: CTA scan of the thorax is performed with IV Contrast, patient injected with 100 mL of Isovue 370, pul monary embolism protocol. . FINDINGS: LUNGS: There is a 6 x 6 x 5 mm nodule in the medial aspect of the left lower lobe has slightly enlarg ed compared to 09/30/2020. There are 2 calcified nodules in the medial aspect of the left lower lobe measuring 3 to 5 mm. There is a 3 mm calcified nodule in the right upper lobe. Large mediastinal or hilar lymph nodes. Scattered calcified lymph nodes are seen in the posterior mediastinum. No lung mass seen. No pneumothorax or pleural effusion. Minimal bibasilar subsegmental atelectatic changes noted. There is normal in size. No pericardial effusion seen. Trachea and bronchial tree are patent. There MEDIASTINUM: There is satisfactory enhancement of the pulmonary artery and its branches, there is no CT evidence for pulmonary embolism. Aorta is nonaneurysmal. The pulmonary trunk diameter is about 3 c m. OTHER: Scattered endplate degenerative changes are seen in the spine. Degenerative changes are seen in the right shoulder joint. 1.3 X 1.1 x 1.0 cm left adrenal nodule. IMPRESSION: 1. NO EVIDENCE FOR ACUTE PULMONARY ARTERIAL EMBOLISM. 2. THERE IS A 6 MM NODULE IN THE LEFT LOWER LOBE ENLARGED COMPARED TO PRIOR, RECOMMEND SHORT-TERM REP EAT CT OF THE CHEST IN 3-6 MONTHS TO RULE OUT DEVELOPING MALIGNANCY OR FOLLOW-UP PER [facility]. 3. LEFT ADRENAL NODULE MEASURING UP TO 1.3 CM, STABLE IN SIZE SINCE 09/30/2020, INDETERMINATE ETIOLOGY , RECOMMEND CORRELATION WITH MRI OF THE ABDOMEN AND/OR CT ABDOMEN ADRENAL MASS PROTOCOL.
[2021-06-05] MEDS ORDERED: NITROGLYCERIN SL TABS 0.4 MG TAB SUBLINGUAL PRN (11:31)
[2021-06-05] MEDS ORDERED: MORPHINE SULFATE 4 MG/ML SYRINGE IVP PRN (11:51)
[2021-06-05] MEDS ORDERED: NITROGLYCERIN OINT 1 INCH/GM PACKET TOPICAL SCH (12:00)
[2021-06-05] MEDS ORDERED: RX INFO: IV CONTRAST WAS GIVEN 1 EACH MISC MISCELLANE PRN (14:43)
[2021-06-05] MEDS: HYDROmorphone 1 MG/ML 1 ML SYRINGE IVP PRN ×4 (14:48→23:00)
[2021-06-05] MEDS ORDERED: LORazepam 2 MG/ML INJ IV STA (14:55)
[2021-06-05] MEDS ORDERED: NALOXONE 0.4 MG/ML 1 ML VIAL IV PRN (15:26)
[2021-06-05] MEDS ORDERED: ACETAMINOPHEN TAB 325 MG TAB PO PRN (15:28)
[2021-06-05] MEDS ORDERED: VANCOMYCIN IV PER PHARMACY 1 EACH MISC MISCELLANE PRN (15:30)
[2021-06-05] MEDS ORDERED: oxyCODONE-APAP 10-325MG 1 EACH TAB PO PRN (15:32)
[2021-06-05] MEDS ORDERED: diazePAM 5 MG TAB PO PRN (15:32)
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
[2021-06-05] MEDS: SODIUM CHLORIDE 0.9% 1,000 ML IV SCH (15:59)
[2021-06-05] MEDS: GABAPENTIN 100 MG CAP PO SCH ×2 (15:59→19:54)
--- NOTE | 2021-06-05 15:59 | CT ---
EXAMINATION TYPE: CT CervThorLumbar spine wo con DATE OF EXAM: 06/05/2021 COMPARISON: 09/30/2020 HISTORY: back pain, recent lumbar fusion CT DLP: 1149.6 mGycm Automated exposure control for dose reduction was used. Images obtained from the skull base through the S1 vertebra without contrast. There is previous anterior fusion surgery at levels from C3 to C5. There is disc space narrowing at C 6-7 with spurring of the endplates. Cervical facet joints are intact. The thoracic vertebra have normal alignment. Disc spaces are fairly normal. There is no compression f racture. There is fairly normal alignment of the lumbar vertebra. There is disc prosthesis at L4-5. There is p osterior fusion surgery at L4-5. There is no thoracic or lumbar paraspinal mass. There appears to be some destruction of the superior articular facet of L2 on the right side. The sacroiliac joints are i ntact. Sacrum is intact. Metal artifact obscures bone detail at the L4-5 level. There is probably roselyn e spinal stenosis at L4-5. IMPRESSION: No compression fracture. Previous surgery. Deformity or destruction of the superior articular facet o f L2 on the right side. This is a change compared to 09/30/2020 exam. Correlation with the surgical hi story needed. Metastatic disease not excluded.
[2021-06-05] MEDS: VANCOMYCIN 1,250 MG in SODIUM CHLORIDE 0.9% 250 ML IVPB SCH (16:00)
[2021-06-05] MEDS: oxyCODONE-APAP 10-325MG 1 EACH TAB PO PRN (21:27)
[2021-06-06] MEDS: SODIUM CHLORIDE 0.9% 1,000 ML IV SCH ×3 (00:30→14:55)
[2021-06-06] MEDS: VANCOMYCIN 1,250 MG in SODIUM CHLORIDE 0.9% 250 ML IVPB SCH ×2 (00:50→07:56)
[2021-06-06] MEDS: HYDROmorphone 1 MG/ML 1 ML SYRINGE IVP PRN ×7 (02:02→23:02)
[2021-06-06] MEDS: oxyCODONE-APAP 10-325MG 1 EACH TAB PO PRN ×4 (07:01→21:02)
[2021-06-06] MEDS: GABAPENTIN 100 MG CAP PO SCH (08:01)
[2021-06-06] MEDS ORDERED: ASPIRIN 325 MG TAB PO SCH (09:00)
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
[2021-06-06] MEDS: METOPROLOL TARTRATE 25 MG TAB PO SCH ×2 (10:10→19:37)
[2021-06-06 10:23] LABS: HCT 36.7 % (39.6-50.0); HGB 12.4 g/dL (13.0-17.0); MCHC 33.8 g/dL (32.0-37.0); MCV 88.9 fL (80.0-97.0); Mean Platelet Volume 8.9 fL (9.5-12.2); Platelet Count 380 X 10*3/uL (140-440); RBC 4.13 X 10*6/uL (4.40-5.60); RDW 13.5 % (11.5-14.5); WBC 10.53 X 10*3/uL (4.50-10.00)
[2021-06-06 10:51] LABS: ALT 10 U/L (10-49); AST 14 U/L (14-35); African American GFR (CKD) 130.2 (60.0-200.0); Albumin 3.8 g/dL (3.8-4.9); Albumin/Globulin Ratio 2.11 (1.60-3.17); Alkaline Phosphatase 62 U/L (41-126); BUN/Creat Ratio 16.14 Ratio (12.00-20.00); Blood Urea Nitrogen 11.3 mg/dL (9.0-27.0); Calcium 8.8 mg/dL (8.7-10.3); Carbon Dioxide 25.6 mmol/L (20.0-27.5); Chloride 102 mmol/L (96-109); Chol/HDL Ratio 3.13 Ratio; Globulin 1.8 g/dL (1.6-3.3); Glucose 113 mg/dL (70-110); LDL Cholesterol,Calculated 78.7 mg/dL (0.0-131.0); Magnesium 1.9 mg/dL (1.5-2.4); Non-African American GFR(CKD) 112.4 (60.0-200.0); Phosphorus 3.2 mg/dL (2.4-5.1); Potassium 4.1 mmol/L (3.5-5.5); Sodium 137 mmol/L (135-145); Total Protein 5.6 g/dL (6.2-8.2)
[2021-06-06] MEDS: diazePAM 5 MG TAB PO PRN ×2 (11:21→19:37)
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
--- NOTE | 2021-06-06 16:40 | ECHOF ---
Referral Reason:chest pain MEASUREMENTS -------- HEIGHT: 182.9 cm WEIGHT: 71.2 kg BP: RVIDd: 3.8 cm (< 3.3) IVSd: 0.6 cm (0.6 - 1.1) LVIDd: 6.1 cm (3.9 - 5.3) LVPWd: 1.2 cm (0.6 - 1.1) IVSs: 1.2 cm LVIDs: 4.4 cm LVPWs: 1.4 cm LA Diam: 4.0 cm (2.7 - 3.8) Ao Diam: 2.9 cm (2.0 - 3.7) MV EXCURSION: 23.556 mm (> 18.000) MV EF SLOPE: 73 mm/s (70 - 150) EPSS: 1.4 cm MV E Jorge A: 0.53 m/s MV DecT: 138 ms MV A Jorge A: 0.62 m/s MV E/A Ratio: 0.85 RAP: 5.00 mmHg RVSP: 30.43 mmHg FINDINGS -------- Sinus rhythm. This was a technically good study. LV size, wall thickness and systolic function are normal, with an EF greater than 55%. The left vipin tricular size is normal. The right ventricle is normal in size. The left atrial size is normal. The right atrial size is normal. The aortic valve is trileaflet, and appears structurally normal. No aortic stenosis or regurgitation. Mild mitral regurgitation is present. Trace tricuspid regurgitation present. Right ventricular systolic pressure is normal at < 35 mmHg. There is no pulmonic regurgitation present. There is no pericardial effusion. CONCLUSIONS -------- 1. LV size, wall thickness and systolic function are normal, with an EF greater than 55%. 2. The left ventricular size is normal. 3. The right ventricle is normal in size. 4. The left atrial size is normal. 5. The right atrial size is normal. 6. The aortic valve is trileaflet, and appears structurally normal. No aortic stenosis or regurgitati on. 7. Mild mitral regurgitation is present. 8. Trace tricuspid regurgitation present. 9. There is no pericardial effusion. [employer] MANAGER: Tiny Lopez RDCS
[2021-06-06] MEDS: GABAPENTIN 300 MG CAP PO SCH ×2 (16:48→19:37)
[2021-06-07] MEDS: oxyCODONE-APAP 10-325MG 1 EACH TAB PO PRN ×3 (00:59→12:14)
[2021-06-07] MEDS: SODIUM CHLORIDE 0.9% 1,000 ML IV SCH ×2 (01:03→09:36)
[2021-06-07] MEDS: HYDROmorphone 1 MG/ML 1 ML SYRINGE IVP PRN ×3 (02:57→11:01)
[2021-06-07] MEDS ORDERED: VANCOMYCIN TROUGH DUE 1 EACH MISC MISCELLANE ONE (07:00)
[2021-06-07 07:07] LABS: African American GFR (CKD) >90 (>60 ml/min/1.73 sqM); Anion Gap 8 mmol/L; Blood Urea Nitrogen 11 mg/dL (9-20); Calcium 9.7 mg/dL (8.4-10.2); Carbon Dioxide 27 mmol/L (22-30); Chloride 100 mmol/L (98-107); Glucose 100 mg/dL (74-99); Non-African American GFR(CKD) >90 (>60 ml/min/1.73 sqM); Potassium 4.1 mmol/L (3.5-5.1); Sodium 135 mmol/L (137-145)
[2021-06-07] MEDS: diazePAM 5 MG TAB PO PRN (07:28)
[2021-06-07 08:09] VITALS: BP 150/115; PULSE 82; RESP 19; TEMP 98.2
[2021-06-07] MEDS ORDERED: MELOXICAM 7.5 MG TAB PO SCH (09:00)
[2021-06-07] MEDS ORDERED: ASPIRIN 81 MG PO SCH (09:00)
[2021-06-07] MEDS: GABAPENTIN 300 MG CAP PO SCH (09:22)
[2021-06-07] MEDS: METOPROLOL TARTRATE 25 MG TAB PO SCH (09:24)
--- NOTE | 2021-06-07 12:21 | P.PN ---
Progress Note - Text Progress Note Date: 06/07/21 The patient is seen and examined at bedside. He is ambulatory in his room and about to take a shower. He says the pain has been moderately controlled and is planning on discharge home today. He has been seen by pain management and I appreciate a note. He denies any chest pain or shortness of breath. Denies any nausea or vomiting. He has not had new change in his lower extremity. On exam the subcu hematomas are intact and stable. There is bruising diffusely across his lower back and extending toward his flank. It is getting more black and blue but it does not seem to be gaining any further fluid. His lower extremities have sustained dorsal flexion plantar flexion and EHL intact. He is amatory in the room. He's afebrile stable vital signs today. Almost 2 weeks status post minimally invasive decompression fusion L4 5 for his spondylolisthesis with stenosis and lower extremity radiculopathy Chronic pain syndrome with acute flareup Chest pain resolved without evidence of cardiac incident or involvement The patient's pain seems to drive a significant portion of his issues with his blood pressure and pulse causing him significant anxiety and the subsequent chest pain. This seems to be resolving appropriately. He does not appear to have any cardiac incident. It is somewhat difficult to control his pain and I appreciate pain management input. We will be able to be discharged with oral medications. We'll follow that advice with adding Mobic and increasing Neurontin to 300, 3 times a day. He is also going to have his Percocet 10 mg every 4 hours along with Valium every 8 hours. He understands that he is at significant risk with his medications and we discussed this today and regularly. His long history of pain control issues and we'll try to manage this with oral medications at home. He seems to understand this appropriately. I put prescriptions for the Neurontin the Mobic the Percocet and Valium into the computer. He can see me for follow- up and continue management for these during his postoperative period I'll plan to see him back in approximately 1 week's time for recheck evaluation. He should continue with ice over his low back at least 3 times a day for 15-20 minutes at a time. He is okay to ambulate but he should essentially try to relax and rest for the most part without any significant activity. I explained that to him today.
--- NOTE | 2021-06-07 13:37 | P.DS ---
<Morris Zamora - Last Filed: 06/07/21 17:32> Providers Expected date of discharge: 06/07/21 Hospital Course: Discharge Diagnosis: Atypical Chest pain, acute coronary event ruled out Sinus Tachycardia Hypertensive urgency, BP improved Back pain with swelling and bruising status post laminectomy on 05/25/21 associated with elevated white blood cell count; likely seroma will rule out infectious process Elevated d-dimer, CTA negative for PE Pulmonary nodule and adrenal nodule Nicotine dependence on cigarettes, cessation encouraged ETOH use, cessation encouraged Other Chronic underlying medical conditions: Fecal retention- continue with ducolax suppository PTSD Hx seizure disorder Hospital Course: Patient is a 45-year-old male past medical history of chronic low back pain status post lumbar laminectomy on 05/25/21, prior neck injury, and recent hernia repair with inability to empty his bowels since that time. He presented to the emergency department on 06/05/21 with complaints of chest and back pain. He was seen and fully evaluated in the emergency department. He was found to have hypertensive emergency with blood pressure of 185/110. A chest x-ray was completed negative for acute cardiopulmonary process. CTA chest was completed negative for acute PE revealing a 6 mm nodule in the left lower lobe enlarged from prior exam, and left adrenal nodule measuring up to 1.3 cm stable in size since 09/30/20. Revealing sinus tachycardia at 113 bpm with no noted T wave or ST abnormality showing no signs of acute ischemia. CT cervical, thoracic, and lumbar spine negative for compression fracture showing postsurgical changes with deformity or deconstruction of the superior articular facet of L2 on the right side, changed from previous exam completed 09/30/20 and cannot rule out metastatic process. Troponins trended and were negative 3. D-dimer 2.12. Echocardiogram completed revealing a normal EF greater than 55% with no significant valvular abnormalities. Patient was admitted under our services with consultation to cardiology. Acute coronary event was ruled out. Patient was started on metoprolol for treatment of hypertension resulting in improvement of blood pressures. Pro-calcitonin was drawn resulting in less than 0.02. Patient remained afebrile throughout hospitalization showing no signs of infection. Swelling at postsurgical site secondary to seroma. Chest pain resolved and blood pressured improved. Pain management also consulted recommending changes to current pain regimen. Orthospine specialist recommending following up outpatient in the office in one week as well as ice packs to lower back 3 times daily for 15-20 minutes at a time. Patient is medically stable at this time. He is being discharged home with prescriptions for Percocet, Valium, Mobitz, and Neurontin for pain management as well as metoprolol for hypertension. Patient to follow-up outpatient with orthospine specialist in 1 week, distribution lineman in 2 weeks for continued long-term monitoring/management of hypertension, and clinical operations leader for continued close monitoring and follow-up of nodule in left lower lobe of lung. Patient reports that he will also obtain a primary care provider after he does some research, recommendations were given. Physical examination: General: Ill-appearing, moderate distress, appears at stated age Derm: Midline postsurgical incision over T12 to L2 as well approximated with moderate outpouching of incision without surrounding erythema or drainage. Right flank area near incision with some swelling and bruising, but no erythema or increased warmth as well as moderate bruising right leg. Also has some old ecchymosis over bilateral sacral area in different stages of healing. Head: atraumatic, normocephalic, symmetric Eyes: EOMI, no lid lag, anicteric sclera Neck: No cervical lymphadenopathy, trachea midline, full range of motion with neck, supple Mouth: no lip lesion, mucus membranes moist Cardiovascular: S1S2 reg, no murmur, positive posterior tibial pulses bilaterally, no edema, capillary refill less than 2 seconds Lungs: clear to ascultation bilaterally, no ronchi, no rales, no wheezes, and no accessory muscle use Abdominal: soft, nontender to palpation, no guarding, no appreciable organomegaly, normal bowel sounds Ext: no gross muscle atrophy, muscle strength muscle strength 5 out of 5 in all 4 extremities, no contractures Neuro: GCS 15. CN II-XI grossly intact, sensation and movement is equal, strong 5/5, and intact in all 4 extremities. A total of 45 minutes of time were spent preparing this complex discharge summary. Assessment: I reviewed the documentation as provided by the FLOWER above, who is the original author of this note. I agree with the documented assessment and plan, with the following changes: None Patient Condition at Discharge: Stable Plan - Discharge Summary New Discharge Prescriptions: New oxyCODONE-APAP 10-325MG [Percocet 10-325 mg] 1 tab PO Q4HR PRN 14 Days #84 tab PRN Reason: Pain diazePAM [Valium] 5 mg PO Q8HR PRN 20 Days #60 tab PRN Reason: Spasms Meloxicam [Mobic] 7.5 mg PO DAILY #30 tab Gabapentin 300 mg PO TID 20 Days #60 cap Metoprolol Tartrate [Lopressor] 25 mg PO BID 30 Days #60 tab Discharge Medication List Gabapentin 300 mg PO TID 20 Days #60 cap 06/07/21 [Rx] Meloxicam [Mobic] 7.5 mg PO DAILY #30 tab 06/07/21 [Rx] Metoprolol Tartrate [Lopressor] 25 mg PO BID 30 Days #60 tab 06/07/21 [Rx] diazePAM [Valium] 5 mg PO Q8HR PRN 20 Days #60 tab 06/07/21 [Rx] oxyCODONE-APAP 10-325MG [Percocet 10-325 mg] 1 tab PO Q4HR PRN 14 Days #84 tab 06/07/21 [Rx] Follow up Appointment(s)/Referral(s): Roger Thurman DO [Doctor of Osteopathic Medicine] - 1 Week None,Stated [Primary Care Provider] - 1-2 days Ike Robert MD [STAFF PHYSICIAN] - 2 Weeks Usha Frances MD [STAFF PHYSICIAN] - 1 Week Patient Instructions/Handouts: Chronic Pain (GEN), Chronic Back Pain (GEN) Activity/Diet/Wound Care/Special Instructions: Activity: Keep site clean. Ice to wound sites every 8 hours for approximately 20 minutes at a time May ambulate as tolerated. Avoid heavy or rigorous activity. No repetitive bending twisting or lifting. No overhead work. Diet: Heart healthy and carb consistent diet. Avoid salts, or foods with hidden salts such as canned or boxed foods and frozen dinners. Extra salt makes your heart work harder and traps the fluid in your body for longer. Special Instructions: Take all of your medications as directed and remember to keep all of your doctor's appointments and follow-up as needed. You will will need to follow up outpatient with clinical operations leader for continued close monitoring and follow-up of nodule in left lower lobe of your lung seen on previous examination and again on CT. You will likely need repeat CT in 3 suns for continued close follow-up. Thank you for allowing us to participate in your care, it was truly a pleasure having you for our patient!!! Discharge Disposition: HOME SELF-CARE <Tang Tracyfadi - Last Filed: 06/07/21 18:38> Providers Date of admission: 06/05/21 11:33 Attending physician: Destini Lopez DO Consults: 06/05/21 11:31 Consult Physician Urgent Consulting Provider: Cezar Nevarez Consult Reason/Comments: cp Do you want consulting provider notified?: Yes 06/05/21 15:28 Consult Physician Routine Consulting Provider: Roger Thurman Consult Reason/Comments: back pain s/p lami Do you want consulting provider notified?: Already Contacted 06/06/21 09:38 Consult Physician Routine Consulting Provider: Sylvie Martinez Consult Reason/Comments: medical pain managment Do you want consulting provider notified?: Yes Primary care physician: Stated None
== END 2021-06-07 14:00 | disposition home or self-care (01) ==
LOC: EC 09:01 → 6NMEDSUR 11:33
PROVIDERS: ADMIT Internal Medicine; ATTEND Internal Medicine
DX: R07.89 Other chest pain (principal); R00.0 Tachycardia, unspecified; I16.1 Hypertensive emergency; R79.89 Other specified abnormal findings of blood chemistry; F17.210 Nicotine dependence, cigarettes, uncomplicated; R91.1 Solitary pulmonary nodule; Z20.822 Contact with and (suspected) exposure to COVID-19; Z71.6 Tobacco abuse counseling; I25.2 Old myocardial infarction; Z98.1 Arthrodesis status; I10 Essential (primary) hypertension; G40.909 Epilepsy, unspecified, not intractable, without status epilepticus; F12.90 Cannabis use, unspecified, uncomplicated; E27.8 Other specified disorders of adrenal gland; R11.0 Nausea; S30.1XXA Contusion of abdominal wall, initial encounter; S80.11XA Contusion of right lower leg, initial encounter; S30.0XXA Contusion of lower back and pelvis, initial encounter; K56.41 Fecal impaction; G89.4 Chronic pain syndrome; F51.4 Sleep terrors [night terrors]; M43.10 Spondylolisthesis, site unspecified; M48.061 Spinal stenosis, lumbar region without neurogenic claudication; M54.16 Radiculopathy, lumbar region; R35.0 Frequency of micturition; R42 Dizziness and giddiness; F90.9 Attention-deficit hyperactivity disorder, unspecified type; F43.10 Post-traumatic stress disorder, unspecified; F31.9 Bipolar disorder, unspecified; Z71.89 Other specified counseling; Z72.89 Other problems related to lifestyle; Z79.899 Other long term (current) drug therapy; Z86.73 Personal history of transient ischemic attack (TIA), and cerebral infarction without residual deficits
CPT/HCPCS: 99285; 96366 ×2; 96375 ×2; 96376 ×3; 96365; 96361; 36415; 93005; 93306; 97162; 97166; 85379; 80061; 80053 ×2; 80048; 82150; 83690; 83735 ×2; 84100; 84484; 85025; 85027; 80202; 85610; 85730; 86140; 84145; 87635; 71046; 72128; 72125; 72131; 71275; G0378 ×3; J3370 ×2; J2060; J2270; J1170 ×3; Q9967